=== PATIENT | female | born 1965 | race Caucasian/White ===

== ENCOUNTER → 2022-02-17 | Outpatient (CLI) | payer OTHER, SELFPAY ==
--- NOTE | 2022-02-17 06:46 | CT_ITS ---
STUDY: CT LEFT FOOT WITHOUT CONTRAST REASON FOR EXAM: Female, 56 years old. FX- attention foot and ankle RADIATION DOSAGE (If Supplied By Facility): CTDIvol = ( 15.35 ) mGy, DLP = ( 384.46 ) mGycm TECHNIQUE: Thin section transaxial imaging of the foot was obtained, with sagittal and coronal reconstructed images. Individualized dose optimization techniques were used for this CT. COMPARISON: None. FINDINGS: A small oblique acute fracture is present in the anterior process and dorsal aspect of the calcaneus without displacement. A small acute linear fracture is also present on the dorsal surface and anterior process of the talus with slight displacement of small bony fragment, see image #32/84 series 3. No additional acute fractures are seen in the remaining bony structures. Moderate subcutaneous edema is present around the lower ankle and entire foot. Small amounts of air and fluid are present on the lateral side of the foot in the subcutaneous fat. The foot muscles are normal. Normal talus, calcaneus, and tarsal bones. A tiny plantar calcaneal spur is present at the midline. The Achilles tendon is intact. Normal visualized tibiotalar, subtalar, talonavicular, calcaneocuboid, tarsal and tarsometatarsal articulations. Normal metatarsi. Normal metatarsophalangeal joint of the great toe. Normal tibial and fibular sesamoid bones. Normal interphalangeal joint of the great toe. Normal phalanges of the great toe. Normal second through fifth metatarsophalangeal joints. Normal interphalangeal joints and phalanges of the lesser toes. CT/Extremity Lower without Contra IMPRESSION: 1. A small oblique acute fracture is present in the anterior process and dorsal aspect of the calcaneus without displacement. 2. A small acute linear fracture is also present on the dorsal surface and anterior process of the talus with slight displacement of small bony fragment, see image #32/84 series 3. No additional acute fractures are seen in the remaining bony structures. 3. Moderate subcutaneous edema is present around the lower ankle and entire foot. Small amounts of air and fluid are present on the lateral side of the foot in the subcutaneous fat. Electronically Signed: Bakari Portillo MD at 15:26 EST ,
== END | disposition home or self-care (01) ==
PROVIDERS: Visit Provider Physician Assistant Surgical
DX: S92.122A Displaced fracture of body of left talus, initial encounter for closed fracture (principal); S92.022A Displaced fracture of anterior process of left calcaneus, initial encounter for closed fracture
CPT/HCPCS: 73700

== ENCOUNTER → 2024-12-29 | Outpatient (CLI) | payer OTHER, SELFPAY ==
--- OUTSIDE RECORDS SUMMARY | 2024-12-29 06:59 | XMS RPT_ITS | CCD ---
Author Organization [facility] Care Team Providers Care Toy Department Manager Name Role Phone JACINTO, ISAMAR Unavailable Unavailable JACINTO, ISAMAR Unavailable Unavailable JACINTO, ISAMAR Unavailable Unavailable JACINTO, ISAMAR Unavailable Unavailable JACINTO, ISAMAR Unavailable Unavailable JACINTO, ISAMAR Unavailable Unavailable JACINTO, ISAMAR Unavailable Unavailable JACINTO, ISAMAR Unavailable Unavailable JACINTO, ISAMAR Unavailable Unavailable JACINTO, ISAMAR Unavailable Unavailable JACINTO, ISAMAR Unavailable Unavailable JACINTO, ISAMAR Unavailable Unavailable JACINTO, ISAMAR Unavailable Unavailable JACINTO, ISAMAR Unavailable Unavailable Adrian Rodrigues Unavailable Unavailable PROVIDER, UNKNOWN Unavailable Unavailable UNKNOWN, PROVIDER Unavailable Unavailable BENTLEY MCBRIDE Unavailable Unavailable BENTLEY MCBRIDE Unavailable Unavailable YOLI ARAMBULA Attending Unavailab norman FRYE, PHYSICIAN Primary Care Unavailable Alex Coto Attending Unavailable Care Physician, No Primary Primary Care Unava ilable Kareem Ozuna MD Primary Care Provider Lita BORDEN MD, Frank A Primary Care Provider Agustina vailable Kareem Ozuna MD Primary Care Provider [phone] Lita BORDEN MD, Frank A Primary Care Provider Agustina vailable Arley RATTAN WORKER.SPARK PLUG ASSEMBLER, Vivi M Unavailable [phone] KAREEM OZUNA Primary Care Unavailable Allergies Allergy Classification Reported Allergen(s) Allergy Type Date of Onset Reaction(s) Facility (9 sources) gabapentin; Translations: [GABAPENTIN] Drug Allergy 6 Mental Status Change [facility] Other [employer] Repository Medications Current Medications Medication Drug Class(es) Dates Sig (Normalized) Sig (Original) hydrocortisone 10 mg/ml / neomycin 3.5 mg/ml / polymyxin b 52569 unt/ml otic suspension (2 sources) Aminoglycoside Antibacterial, Polymyxin-class Antibacterial, Corticosteroid Start: 11-26-2023 End: 12-01-2023 neomycin-polymyxin- hydrocortisone (CORTISPORIN) 3.5-10,000-1 mg/mL-unit/mL-% otic suspension Indications: Acute swimmer's ear of left side Use 4 Drops in the right ear three times a day for 5 days. 10 mL 11/26/2023 12/01/2023 Active Levonorgestrel (6 sources) Progestin, Progestin-containin g Intrauterine Device levonorgestrel (MIRENA INTRAUTERINE) by INTRAUTERINE route. Active levonorgestrel ( MIRENA INTRAUTERINE) by INTRAUTERINE route. 0 Active Comment on above: by INTRAUTERINE rout e. nitrofurantoin, macrocrystals 25 mg / nitrofurantoin, monohydrate 75 mg oral capsule (2 sources) Nitrofuran Antibacterial Start: 11-26-19 End: 12-01-19 take 1 capsule by mouth twice daily nitrofurantoin monohydrate and macrocrystal (MACROBID) 100 mg capsule Indications: Frequent urination Take 1 capsule by mouth two times a day for 5 days. 10 capsule 11/26/2023 12/01/2023 Active Problems Active Problems Problem Classification Problem Date Documented Da te Episodic/Chronic Diseases of white blood cells (7 sources) Band neutrophil count above reference range; Translations: [Bandemia] Onset: 10-01-2017 10-01-2017 Chronic Genitourinary symptoms and ill-defined conditions (1 source) Increased frequency of urination; Translations: [Frequency of micturition] 11-26-2023 Episodic Menstrual disorders (2 sources) Excessive and frequent menstruation with regular cycle; Translations: [Excessive and frequent menstruation with regular cycle] Onset: 05-10-2017 Chronic Other aftercare (4 sources) MCC (current) use of opiate analgesic; Translations: [MCC (current) use of non-steroidal anti-inflammatories (NSAID)] Onset: 10-18-2017 Episodic Other connective tissue disease (2 sources) Enthesopathy, unspecified; Translations: [Enthesopathy, unspecified] Onset: 10-18-2017 Episodic Other connective tissue disease (1 source) Trigger finger, right ring finger; Translations: [Trigger finger, right ring finger] Onset: 02-07-2018 Episodic Other ear and sense organ disorders (1 source) Acute otitis externa; Translations: [Swimmer's ear, left ear] 11-26-2023 Episodic Other nervous system disorders (2 sources) Other chronic pain; Translations: [Other chronic pain] Onset: 10-18-2017 Chronic Other non-traumatic joint disorders (2 sources) Pain in left wrist; Translations: [Pain in left wrist] Onset: 10-18-2017 Episodic Other nutritional; endocrine; and metabolic disorders (7 sources) Obese class II; Translations: [Obesity, unspecified] Onset: 12-09-2018 06-15-2021 Chronic Spondylosis; intervertebral disc disorders; other back problems (7 sources) Arthritis of facet joint of lumbar spine; Translations: [Spondylosis without myelopathy or radiculopathy, lumbar region] Onset: 10-28-2012 10-28-2012 Chronic Substance-related disorders (2 sources) Nicotine dependence, cigarettes, uncomplicated; Translations: [Nicotine dependence, cigarettes, uncomplicated] Onset: 10-18-2017 Chronic Unclassified (5 sources) Encounter for screening for malignant neoplasm of cervix; Translations: [Patient encounter status] Onset: 01-24-2017 Episodic Unclassified (2 sources) Acquired absence of other specified parts of digestive tract; Translations: [Acquired absence of other specified parts of digestive tract] Onset: 10-18-2017 Episodic Unclassified (2 sources) Other abnormal uterine and vaginal bleeding; Translations: [Other abnormal uterine and vaginal bleeding] Onset: 02-01-2017 Past or Other Problems Problem Classification Problem Date Documented Date Episodic/Chronic Allergic reactions (6 sources) Allergy status to narcotic agent status; Translations: [Contact dermatitis] Onset: 08-05-2008 Resolved: 04-15-2015 04-15-2015 Episodic Contraceptive and procreative management (7 sources) Intrauterine contraceptive device in situ; Translations: [Presence of (intrauterine) contraceptive device] Onset: 07-29-2012 07-29-2012 Episodic Fracture of lower limb (7 sources) Unspecified fracture of left talus, initial encounter for closed fracture; Translations: [Unspecified fracture of left calcaneus, initial encounter for closed fracture] Onset: 02-08-2022 Episodic Genitourinary symptoms and ill-defined conditions (4 sources) Female stress incontinence; Translations: [Stress incontinence (female) (male)] Onset: 04-15-2015 Resolved: 06-17-2021 06-17-2021 Chronic Other connective tissue disease (4 sources) Left rotator cuff syndrome; Translations: [Unspecified rotator cuff tear or rupture of left shoulder, not specified as traumatic] Onset: 03-21-2017 Resolved: 10-01-2017 10-01-2017 Episodic Other connective tissue disease (4 sources) Triggering of digit; Translations: [Trigger finger, right ring finger] Onset: 02-07-2018 Resolved: 04-30-2018 04-30-2018 Episodic Other inflammatory condition of skin (4 sources) Psoriasis; Translations: [Psoriasis, unspecified] Onset: 09-02-2010 Resolved: 06-17-2021 06-17-2021 Chronic Residual codes; unclassified (7 sources) Tobacco user; Translations: [Tobacco use] Onset: 01-01-2012 01-01-2012 Episodic Spondylosis; intervertebral disc disorders; other back problems (9 sources) Dorsalgia, unspecified; Translations: [Lumbar disc prolapse with radiculopathy] Onset: 01-01-2012 11-22-2017 Episodic Urinary tract infections (4 sources) Urinary tract infectious disease; Translations: [Urinary tract infection, site not specified] Onset: 10-29-2006 Resolved: 04-15-2015 04-15-2015 Episodic Results Test Name Value Interpretation Reference Range Facility [facility] -- SHAHEEN JOHNSTON ([id number]) 1965 F Date Time Provider Department 11/28/23 MANJINDER LAY [facility] During your visit today, we recorded the following information about you: Manjinder Lay APRN.CNP 11/28/2023 7:25 AM Signed Please inform patient that no bacterial infection was noted on urine culture. Continue antibiotics symptoms are improving. Follow-up with PCP for repeat urine dip. Manjinder Lay APRN.Stormy Huang LPN 11/28/2023 9:35 AM Signed Patient notified.Stormy Rainey LPN Allergies As of Date: 11/28/2023 Noted Allergy Reaction GABAPENTIN 06/01/2015 1 - Mental Status Change Date Reviewed: 11/26/2023 Reviewed by: Shira Goel APRN.SPARK PLUG ASSEMBLER - Fully Assessed Reason for Visit: Results [95] Prescriptions as of 11/28/2023 - nitrofurantoin monohydrate and macrocrystal (MACROBID) 100 mg capsule Take 1 capsule by mouth two times a day for 5 days. - pbpvnriq-lhucwluhe-qwinuba rtisone (CORTISPORIN) 3.5-10,000-1 mg/mL-unit/mL-% otic suspension Use 4 Drops in the right ear three times a day for 5 days. - levonorgestrel (MIRENA INTRAUTERINE) by INTRAUTERINE route. Problem List As Of Date 11/28/2023 Noted Resolved Urinary tract infection, site not specified [N3*10/29/2006 04/15/2015 Contact dermatitis and other eczema, due to uns*08/05/2008 04/15/2015 Psoriasis [L40.9] 09/02/2010 06/17/2021 Lumbar disc disease with radiculopathy [M51.16] 01/01/2012 Tobacco abuse [Z72.0] 01/01/2012 IUD (intrauterine device) in place [Z97.5] 07/29/2012 Facet arthritis of lumbar region [M47.816] 10/28/2012 LESLYE (stress urinary incontinence, female) [N39.*04/15/2015 06/17/2021 Rotator cuff syndrome of left shoulder [M75.102]03/21/2017 10/01/2017 Bandemia [D72.825] 10/01/2017 Trigger finger, right ring finger [M65.341] 02/07/2018 04/30/2018 Obesity, Class II, BMI 35-39.9 [E66.9] 12/09/2018 Encounter Status:Closed by STORMY RAINEY on 11/28/23 Normal [facility] Bacteria Ur Culton 4 Bacteria identified Cx Nom (U) ORGANISM ID: 1 10,000 -<50,000 CFU/ml Mixed microbiota No further workup Normal [facility] Comment on above: Performed By: #### 6 30-4 #### [facility] CLIA [id number] [address] [place] [address] [place] CNOVon 11-26-2023 CNOV Office Visit ([facility] ) -- SHAHEEN JOHNSTON ([id number]) 1965 F Date Time Provider Department 11/26/23 3:30 PM SHIRA GOEL [facility]STR During your visit today, we recorded the following information about you: Temperature Pulse Respiration Blood pressure 99.4 degrees 118/minute 16/minute 122/82 Weight 98.5 kg Shira Goel, RATTAN WORKER.SPARK PLUG ASSEMBLER 11/26/2023 4:04 PM Signed This note was created using [employer] Subjective Shaheen Johnston is a 58 year old female. HPI Pt complains of pain and swelling in her left ear after swimming last week. Symptoms seemed worse over the last several days. Last night pt noticed urinary frequency which has continued into today. Review of Systems Constitutional: Negative for fever. HENT: Negative for ear pain. Genitourinary: Positive for dysuria and frequency. Objective BP 122/82 Pulse 118 Temp 37.4 ?C (99.4 ?F) Resp 16 Wt 98.5 kg (217 lb 2.5 oz) LMP 07/11/2009 SpO2 98% BMI 35.32 kg/m? Physical Exam Vitals and nursing note reviewed. Constitutional: General: She is not in acute distress. Appearance: Normal appearance. She is not ill-appearing. HENT: Head: Normocephalic. Ears: Comments: Left external ear canal is swollen close Mouth/Throat: Mouth: Mucous membranes are moist. Eyes: Conjunctiva/sclera: Conjunctivae normal. Cardiovascular: Rate and Rhythm: Normal rate and regular rhythm. Pulmonary: Effort: Pulmonary effort is normal. Breath sounds: Normal breath sounds. Musculoskeletal: General: Normal range of motion. Cervical back: Normal range of motion. Skin: General: Skin is warm and dry. Neurological: General: No focal deficit present. Mental Status: She is alert. Psychiatric: Mood and Affect: Mood normal. Behavior: Behavior normal. Assessment and Plan ASSESSMENT/PLAN: 1. Frequent urination - ICD9: 788.41, ICD10: R35.0 (primary diagnosis) acute - UA positive for florence esterase - Send urine for culture - Begin treatment with Macrobid 100 mg BID for 5 days - Patient education for prevention given - UA DIP, URINE (POC) - URINE CULTURE - NITROFURANTOIN MONOHYDRATE AND MACROCRYSTAL 100 MG ORAL CAP 2. Acute swimmer's ear of left side - ICD9: 380.12, ICD10: H60.332 Ear wick inserted into left ear by myself. Several drops of normal saline were applied to anchor the ear wick. Patient given antibiotic drops as noted below. - PVESBOTQ-QVOJACGTD-FMWHNMF RT 3.5 MG-10,000 UNIT/ML-1 % EAR DROPS,SUSP Shira Goel APRN.SPARK PLUG ASSEMBLER Allergies As of Date: 11/26/2023 Noted Allergy Reaction GABAPENTIN 06/01/2015 1 - Mental Status Change Date Reviewed: 11/26/2023 Reviewed by: Shira Goel APRN.SPARK PLUG ASSEMBLER - Fully Assessed Reason for Visit: Facial Swelling [1292] Cmt: left side facial swelling, ear pain and pressure x 3 days, frequent urination x 1 day Primary Visit Diagnosis:Frequent urination [R35.0] Other Visit Diagnosis:Acute swimmer's ear of left side [H60.332] Order(s):UA DIP, URINE (POC) [9824339] Order #: [id number] URINE CULTURE [SQURCUL] Order #: [id number]. #:[id number] nitrofurantoin monohydrate and macrocrystal (MACROBID) 100 mg capsuleTake 1 capsule by mouth two times a day for 5 days.Disp: 10 capsuleRfl: 0 aakbdicq-flpjlmfey-etgguyg rtisone (CORTISPORIN) 3.5-10,000-1 mg/mL-unit/mL-% otic suspensionUse 4 Drops in the right ear three times a day for 5 days.Disp: 10 mLRfl: 0 Prescriptions as of 11/26/2023 - nitrofurantoin monohydrate and macrocrystal (MACROBID) 100 mg capsule Take 1 capsule by mouth two times a day for 5 days. - qggqxjiv-djczwmmju-fdeytdm rtisone (CORTISPORIN) 3.5-10,000-1 mg/mL-unit/mL-% otic suspension Use 4 Drops in the right ear three times a day for 5 days. - levonorgestrel (MIRENA INTRAUTERINE) by INTRAUTERINE route. Problem List As Of Date 11/26/2023 Noted Resolved Urinary tract infection, site not specified [N3*10/29/2006 04/15/2015 Contact dermatitis and other eczema, due to uns*08/05/2008 04/15/2015 Psoriasis [L40.9] 09/02/2010 06/17/2021 Lumbar disc disease with radiculopathy [M51.16] 01/01/2012 Tobacco abuse [Z72.0] 01/01/2012 IUD (intrauterine device) in place [Z97.5] 07/29/2012 Facet arthritis of lumbar region [M47.816] 10/28/2012 LESLYE (stress urinary incontinence, female) [N39.*04/15/2015 06/17/2021 Rotator cuff syndrome of left shoulder [M75.102]03/21/2017 10/01/2017 Bandemia [D72.825] 10/01/2017 Trigger finger, right ring finger [M65.341] 02/07/2018 04/30/2018 Obesity, Class II, BMI 35-39.9 [E66.9] 12/09/2018 Prescriptions ordered this encounter Disp Refills Start End NITROFURANTOIN MONOHYDRATE AND MACROCR* 10 c* 0 11/26/2023 12/01/2023 Route: ORAL Sig: Take 1 capsule by mouth two times a day for 5 days. IVWJXQNV-SEQULTPRF-UOBQMJF RT 3.5 MG-* 10 mL 0 11/26/2023 12/01/2023 Route: RIGHT EAR Sig: Use 4 Drops in the right ear three times a day for 5 days. Encounter Number: [id number] (more content not included)... Normal [facility] UA DIP, URINE (POC)on 2023 BILIRUBIN UA (POCT) Negative Negative [facility] CLARITY UA (POCT) Clear [facility] COLOR UA (POCT) Yellow [facility] GLUCOSE UA (POCT) Negative Negative mg/dL [facility] Hemoglobin Ql (U) Trace-intact Abnormal Negative [facility] Interpretation and review of laboratory results Abnormal [facility] KETONE UA (POCT) Negative Negative mg/dL [facility] LEUKOCYTES UA (POCT) Trace Abnormal Negative [facility] NITRITE UA (POCT) Negative Negative [facility] PH UA (POCT) 6.0 4.5 - 8.0 [facility] Protein Ql (U) Negative Negative mg/dL [facility] SPECIFIC GRAVITY UA (POCT) >=1.030 1.005 - 1.030 [facility] UROBILINOGEN UA (POCT) 1.0 Normal E.U./dL [facility] Location:[address], [id number] [place] [address] POINT OF CARE [facility] CNCOon 07-31-2023 CNCO Letter Text Normal [facility] Extremity Lower without Cont raon 02-17-2022 Extremity Lower without Contra [facility] Imaging Services [address] [place] [address] Extremity Lower without Contra MR#: [id number] Acct: [id number] Name: SHAHEEN JOHNSTON Rep #: [id number] : 1965 F 56 From: Bakari foster MD PCP: Care Physician,No Primary Status: REG CLI Study: Extremity Lower without Contra Date of Exam: 04/19/21 Exam# [id number] Ordering Dr: Alex Coto PA-C STUDY: CT LEFT FOOT WITHOUT CONTRAST REASON FOR EXAM: Female, 56 years old. FX- attention foot and ankle RADIATION DOSAGE (If Supplied By Facility): CTDIvol = ( 15.35 ) mGy, DLP = ( 384.46 ) mGycm TECHNIQUE: Thin section transaxial imaging of the foot was obtained, with sagittal and coronal reconstructed images. Individualized dose optimization techniques were used for this CT. COMPARISON: None. FINDINGS: A small oblique acute fracture is present in the anterior process and dorsal aspect of the calcaneus without displacement. A small acute linear fracture is also present on the dorsal surface and anterior process of the talus with slight displacement of small bony fragment, see image #32/84 series 3. No additional acute fractures are seen in the remaining bony structures. Moderate subcutaneous edema is present around the lower ankle and entire foot. Small amounts of air and fluid are present on the lateral side of the foot in the subcutaneous fat. The foot muscles are normal. Normal talus, calcaneus, and tarsal bones. A tiny plantar calcaneal spur is present at the midline. The Achilles tendon is intact. Normal visualized tibiotalar, subtalar, talonavicular, calcaneocuboid, tarsal and tarsometatarsal articulations. Normal metatarsi. Normal metatarsophalangeal joint of the great toe. Normal tibial and fibular sesamoid bones. Normal interphalangeal joint of the great toe. Normal phalanges of the great toe. Normal second through fifth metatarsophalangeal joints. Normal interphalangeal joints and phalanges of the lesser toes. CT/Extremity Lower without Contra IMPRESSION: 1. A small oblique acute fracture is present in the anterior process and dorsal aspect of the calcaneus without displacement. 2. A small acute linear fracture is also present on the dorsal surface and anterior process of the talus with slight displacement of small bony fragment, see image #32/84 series 3. No additional acute fractures are seen in the remaining bony structures. 3. Moderate subcutaneous edema is present around the lower ankle and entire foot. Small amounts of air and fluid are present on the lateral side of the foot in the subcutaneous fat. Electronically Signed: Bakari Portillo MD at 15:26 EST , CC: ULISES Coto; No Primary Care Physician Video Software Engineer: Signed Normal [facility] XR ANKLE LEFT 3+ VIEWS (COSME DARD)on 02-08-2022 XR ANKLE LEFT 3+ VIEWS (STANDARD) EXAMINATION: XR FOOT LEFT 3+ VIEWS (STANDARD); XR ANKLE LEFT 3+ VIEWS (STANDARD) 02/07/2022 10:54 pm HISTORY: ORDERING SYSTEM PROVIDED HISTORY: fall, TECHNOLOGIST PROVIDED HISTORY: Injury/Trauma Reason for exam: Pt states slipped and felt her ankle go underneath her. Noticeable swelling to the Left ankle. Cancer History: n Surgery, RadiationHistory: n Encounter Type: Initial Mechanism of injury: Pt states slipped and felt her ankle go underneath her. Noticeable swelling to the Left ankle. ORDERING SYSTEM PROVIDED DIAGNOSIS CODES: COMPARISON: None. IMPRESSION: FINDINGS/ Avulsion fracture involving the lateral aspect of the dorsal talar head. Minimally displaced fracture involving the anterior process of the calcaneus. Regional soft tissue swelling. No other fractures are evident. Achilles tendon insertional and plantar calcaneal enthesopathy. No radiopaque foreign bodies. Workstation ID: [id number] Dictated by: ALEC MCKEON on SunFeb 07, 2022 11:37:30 PM EDT Transcribed by: ALEC MCKEON on SunFeb 07, 2022 11:37:30 PM EDT Finalized by: ALEC MCKEON on SunFeb 07, 2022 11:37:[address] [facility] Comment on above: Order Comment: Injur y/Trauma or Illness?:Injury/Trauma How long have you had these symptoms (acute/chronic)?:Acute Reason for exam?:Pt states slipped and felt her ankle go underneath her. Noticeable swelling to the Left ankle. History of cancer?:n Surgeries, chemotherapy, or radiation?:n Type of Exam?:Initial Mechanism of injury?:Pt states slipped and felt her ankle go underneath her. Noticeable swelling to the Left ankle. XR FOOT LEFT 3+ VIEWS (STAND MICHELL)on 02-08-2022 XR FOOT LEFT 3+ VIEWS (STANDARD) EXAMINATION: XR FOOT LEFT 3+ VIEWS (STANDARD); XR ANKLE LEFT 3+ VIEWS (STANDARD) 02/07/2022 10:54 pm HISTORY: ORDERING SYSTEM PROVIDED HISTORY: fall, TECHNOLOGIST PROVIDED HISTORY: Injury/Trauma Reason for exam: Pt states slipped and felt her ankle go underneath her. Noticeable swelling to the Left ankle. Cancer History: n Surgery, RadiationHistory: n Encounter Type: Initial Mechanism of injury: Pt states slipped and felt her ankle go underneath her. Noticeable swelling to the Left ankle. ORDERING SYSTEM PROVIDED DIAGNOSIS CODES: COMPARISON: None. IMPRESSION: FINDINGS/ Avulsion fracture involving the lateral aspect of the dorsal talar head. Minimally displaced fracture involving the anterior process of the calcaneus. Regional soft tissue swelling. No other fractures are evident. Achilles tendon insertional and plantar calcaneal enthesopathy. No radiopaque foreign bodies. Workstation ID: [id number] Dictated by: ALEC MCKEON on SunFeb 07, 2022 11:37:30 PM EDT Transcribed by: ALEC MCKEON on SunFeb 07, 2022 11:37:30 PM EDT Finalized by: ALEC MCKEON on SunFeb 07, 2022 11:37:[address] [facility] Comment on above: Order Comment: Injur y/Trauma or Illness?:Injury/Trauma How long have you had these symptoms (acute/chronic)?:Acute Reason for exam?:Pt states slipped and felt her ankle go underneath her. Noticeable swelling to the Left ankle. History of cancer?:n Surgeries, chemotherapy, or radiation?:n Type of Exam?:Initial Mechanism of injury?:Pt states slipped and felt her ankle go underneath her. Noticeable swelling to the Left ankle. HISTORY PHYSICALon HISTORY PHYSICAL HNO ID: [id number] thor: Bentley Barrerae: Orthopaedic SurgeryAuthor Type: PhysicianType: HANDPFiled: 02/22/2018 1:03 PMNote Text:Bentley Mcbride [facility]epartment of [id number] [address] [place] [place] [address]Bkrf: [phone] Ighuhro [id number] COMPLAINT: New Patient (Trigger Finger, R)HPI: Ms. Shaheen Johnston is a 52 year old female presents with locking,clicking, pain in the right ring finger. Works as a nurse. D.ASSESSMENT:M65.341 Trigger ring finger of right hand (primary encounter diagnosis)PLAN:Flexor tenosynovitis. She would like to pursue surgery. We reviewed therisks, benefits, alternatives and potential complications of a triggerrelease.FOLLOW UP INSTRUCTIONS:Schedule at her convenienceOBJECTIVE:Ms. Shaheen Johnston is a pleasant 52 year old in no apparent distress.Gen:BP 146/98 Pulse 102 Ht 5' 8 (1.73m) Wt 188 lb (85.3kg) BMI28.59 kg/(m2). nl development, non obese, no deformitiesENT: Normocephalic, normal hearing, moist mucosaCV: Pulses:Radial= 2+ and symmetric, capillary refill < 2 secs, noperipheral edema/varicositiesHeart: RRR, Nml S1, P8Kuyks: CTA B/LSkin: no rash, bruising or lesions. Good turgor.Psych: cooperative and appropriate, alert and oriented x 3, good mood andaffect.Musculoskeletal: Tender to palpation over the A1 fabio of the right ring finger. Activelocking and catching.IMAGING:Deferred today.Supporting Subjective Information Below:Past Medical History:PAST MEDICAL HISTORYDiagnosis Date- Acute appendicitis without mention of peritonitis 06/20/07- Bandemia 10/01/2017 05/10/17: WBC 12.9 abs neutrophils 11.8 (2.85-6.16) abs lymphocytes2.3 (0.77-3.85)- De Quervain's tenosynovitis, left- Facet arthritis of lumbar region (HCC) 10/28/2012- Lumbar disc disease with radiculopathy 01/01/2012- Lumbar disc disease with radiculopathy 01/01/2012 MRI [place] spine 2013: mod-severe left foraminal stenosis, L4-5- Psoriasis 09/02/2010- Rotator cuff syndrome of left shoulder 03/21/2017 03/21/17: Tendinitis of the supraspinatus, subscapularis, andinfraspinatus tendons, left shoulder- Tobacco abuse 01/01/2012- Tobacco abusePast Surgical History:PAST SURGICAL HISTORYProcedure Laterality Date- LAPAROSCOPY, SURGICAL, APPENDECTOMY 06/[birth year]07Family History:FAMILY HISTORYProblem Relation Age of Onset- None UnknownSocial History:Social History Marital status: Legally Spouse name: Years of education: Number of children:Social History Main Topics Smoking status: Current Every Day Smoker Packs/day: 0.50 Years: 20.00 Types: Cigarettes Smokeless tobacco: Never Used Alcohol use: Yes Comment: socially Drug use: NoMedications:Current Outpatient Prescriptions:[START ON 02/08/2018] HYDROcodone-acetaminophen (NORCO) 5-325 mg per tabletTake 1-2 tablets by mouth every 6 hours as needed for Pain (max 8/day) forup to 30 days.Earliest Fill Date: 02/08/18[START ON 03/10/2018] HYDROcodone-acetaminophen (NORCO) 5-325 mg per tabletTake 1-2 tablets by mouth every 6 hours as needed for Pain (max 8/day) forup to 30 days.Earliest Fill Date: 03/10/18[START ON 04/10/2018] HYDROcodone-acetaminophen (NORCO) 5-325 mg per tabletTake 1-2 tablets by mouth every 6 hours as needed for Pain (max 8/day) forup to 30 days.Earliest Fill Date: 04/10/18gabapentin (NEURONTIN) 100 mg capsule Take 2 capsules by mouth daily atbedtime for 30 days.levonorgestrel (MIRENA INTRAUTERINE) by INTRAUTERINE route.HYDROcodone-acetamin ophen (NORCO) 5-325 mg per tablet Take 1-2 tablets bymouth every 6 hours as needed for Pain (max 8/day) for up to 30days.Earliest Fill Date: 11/04/17HYDROcodone-acetami nophen (NORCO) 5-325 mg per tablet Take 1-2 tablets bymouth every 6 hours as needed for Pain (max 8/day) for up to 30days.Earliest Fill Date: 12/04/17HYDROcodone-acetami nophen (NORCO) 5-325 mg per tablet Take 1-2 tablets bymouth every 6 hours as needed for Pain (max 8/day) for up to 30days.Earliest Fill Date: 07/06/17HYDROcodone-acetami nophen (NORCO) 5-325 mg per tablet Take 1-2 tablets bymouth every 6 hours as needed for Pain (max 8/day) for up to 30days.Earliest Fill Date: 08/06/17No current facility-administered medications for this visit.Allergies: GabapentinROS:General (negative for fatigue, malaise, weight loss/gain)HEENT (negative for headache, earache, recent vision changes, sinus pain,sore throat) Respiratory (no recent shortness of breath, hemoptysis)CV (negative for chest tightness, palpitations)Musculoskelet al (see HPI)Psych (no depression, anxiety)REFERRING PHYSICIAN: Ms. Shaheen Johnston was referred to me forconsultation by the following physician. This consultation note will besent to the following physician by either mail or electronic medicalrecord.Bj London III MD17[address] [facility] [id number] note was partially generated using Snappli voice recognition system,and there may be some incorrect words, spellings, and punctuation thatwere not noted in checking the note before saving.Bentley Mcbride MD [facility] NURSING PROGon 02-22-2018 Protein mass conc HNO ID: [id number] Author: Obed (Rn) REMY Coreas Service: Nursing Author Type: Registered Nurse Type: Nursing Progress Note Filed: 02/22/2018 1:14 PM Note Text: Local injection r ring finger per DR Mcbride [facility] OPERATIVE NOon 02-22-2018 OPERATIVE NO HNO ID: [id number] thor: Bentley McbrideService: Orthopaedic SurgeryAuthor Type: PhysicianType: Operative ReportFiled: 02/22/2018 1:58 PMNote Text:OPERATIVE/PROCEDURE REPORTLOG ID: [id number]/Procedure Date: 02/22/2018Incision/Procedu re Start Time: 1:33 PMIncision Close/Procedure End Time: 1:45 PMSurgeon(s)/Proceduralist (s) and Purchasing Assistant(s):Surgeon(s) and Role: * Bentlye Mcbride - PrimaryPhysician Purchasing Assistant: Jackson (Pa) VetovitzProcedure(s): right ring trigger release.Anesthesia: Local.Procedure Details: On 02/22/2018, the patient was clearly identified inthe preoperative area and marked accordingly on the right ring by myself.After a chloroprep swab, Local anesthetic was provided at the base of thering near the A1 fabio site for a total of 2 mL of 1% lidocaine withEpinephrine. Patient was taken to the operative suite and placed in thesupine position with an arm board on the right. All other bony landmarkswere appropriately padded in standard fashion. The right upper extremitywas sterilely prepped and draped in standard fashion. An appropriatetime-out was conducted and all in the room were in agreement, signedconsent form was on the chart. An incision was made over the A1 fabio ofthe ring. This was done superficially with a 15 blade and blunt dissectionwas taken down longitudinally to the flexor apparatus. The digital nerveswere clearly identified and protected throughout the case with Crileretractors. Under direct visualization, I divided the A1 fabio site ofthe ring with a 15 blade. There was obvious tenosynovitis and a slightsynovectomy was made with Littler scissors. I used a Ragnell retractor topull the tendon up through the wound confirming its complete release. Thewound was copiously irrigated and the tourniquet was taken down.Hemostasis was observed with bipolar electrocautery.Closure was done with 4-0 Monosof sutures in horizontal mattress fashionfor a total of 2. Xeroform gauze, an eye patch, light Khadar wrap and Cobanwas used for final bandage. There were no complications during theprocedure. Patient was safely awoken and transferred to the PostanestheticCare Unit in stable condition.Pre-Op/Pre-Proce dure Diagnosis: right ring trigger fingerPost-Op/Post-Procedu re Diagnosis: right ring trigger finger.Estimated Blood Loss: NoneSpecimens: NoneImplantable Devices: NoneDrains: NoneComplications: NoneThe primary surgeon/proceduralist performed the entire procedure.SIGNATURE: Bentley Mcbride MD PATIENT NAME: Shaheen JohnstonDATE: February 22, 2018 : 1:57 PM PAGER/CONTACT #: [facility] PT EDon 02-22-2018 PT ED HNO ID: [id number] thor: Roseanne (Rn) JACKSON Edwardservice: (none)Author Type: Registered NurseType: Patient EducationFiled: 02/22/2018 1:54 PMNote Text:POST OP LEARNING RESPONSEINSTRUCTION PROVIDED TO: Patient and family memberMETHOD OF INSTRUCTION: Written instruction - handoutsVerbal instructionPATIENT / FAMILY RESPONSE: Verbalizes understanding of: POST-OPERATIVEINSTRUCTIONS -Correct actions to take to reduce postoperative complicationsFOLLOW-UP PLAN: Complete - No need for follow-upPatient instructed to call with any further issuesSUPPLEMENTAL MATERIAL: NoneREFERRAL (RECOMMENDATION): NoneElectronically Signed By: Roseanne Edwards RN In Department[facility] PT ED HNO ID: [id number] thor: Obed (Rn) Lyudmila RNService: NursingAuthor Type: Registered NurseType: Patient EducationFiled: 02/22/2018 12:05 PMNote Text:PRE OP LEARNING ASSESSMENTPROCEDURE/SURGER Y: SURGERY:READINESS TO LEARNCOGNITIVE ABILITY: Alert and orientedMOTIVATION TO LEARN: InterestedFAMILY SUPPORT: High - Very involved in pt carePATIENT LEARNS BEST BY: Verbal InstructionFACTORS AFFECTING LEARNING: NonePHYSICAL LIMITATIONS AFFECTING LEARNING: NoneElectronically Signed By: Obed Coreas RN In Department: [facility] HOSPon 02-07-2018 HOSP Patient:Case Johnston ea KMRN: Height:5' 8(1.727 m)Weight:188 lb (85.276 kg)Outpatient Medications as of 02/22/18:HYDROcodone-aceta minophen (NORCO) 5-325 mg per tabletgabapentin (NEURONTIN) 100 mg capsuleHYDROcodone-acetami nophen (NORCO) 5-325 mg per tabletHYDROcodone-acetamin ophen (NORCO) 5-325 mg per tabletlevonorgestrel (MIRENA INTRAUTERINE)HYDROcodone-a cetaminophen (NORCO) 5-325 mg per tabletHYDROcodone-acetamin ophen (NORCO) 5-325 mg per tabletAdmission/Clinic Administered Medications as of 02/22/18:lidocaine-EPINEPH rine 2 %-1:100,000 10 mL injectionProblem List:Arthralgia [M25.50]Psoriasis [L40.9]Venous insufficiency of leg [I87.2]Lumbar disc disease with radiculopathy [M51.16]Tobacco abuse [Z72.0]IUD (intrauterine device) in place [Z97.5]Facet arthritis of lumbar region (HCC) [M46.96]Chronic pain syndrome [G89.4]LESLYE (stress urinary incontinence, female) [N39.3]Chronic use of opiate for therapeutic purpose [Z79.891]Bandemia [D72.825]Trigger finger, right ring finger [M65.341]Allergies:Gabapen tinDate Verified: 02/22/18Lab ValuesNo results within the last 30 days for the following basenames: K,HCTProgress Notes ([facility]):Heena Cristobal Chelle Yip 02/07/2018 10:51 AM SignedSurgical request completed for right ring trigger finger release [facility] on 02/22/2018 under local anesthesia. Post op appointments have beenscheduled and mailed to patient.Brandy Mariscals [facility] 02/07/2018 3:34 PM SignedNoted [facility].Heena Cristobal Chelle Yip 02/07/2018 4:27 PM SignedSurgery has been scheduled as requested.Progress Notes ([facility]):Shea Garcia Ma 02/22/2018 1:01 PM SignedAMB ROOMING INTAKE FLOWSHEET DATARisk ScreeningDo you have concerns about personal safety or safety in the home?: NoPatient reports R ring finger clicking, locking, swelling that started about 3weeks ago. Feels like its stoved at times and every once in a while painradiates into R wrist. She has tried ibuprofen and ice with minimal relief.States that symptoms have gotten worse after removing her ring from finger. 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 Shaheen Johnston is a 52 year old female presents with locking,clicking, pain in the right ring finger. Works as a nurse. RHD.ASSESSMENT:M65.341 Trigger ring finger of right hand (primary encounter diagnosis)PLAN:Flexor tenosynovitis. She would like to pursue surgery. We reviewed the risks,benefits, alternatives and potential complications of a trigger release.FOLLOW UP INSTRUCTIONS:Schedule at her convenienceOBJECTIVE:Ms. Shaheen Johnston is a pleasant 52 year old in no apparent distress.Gen:BP 146/98 Pulse 102 Ht 5' 8 (1.73m) Wt 188 lb (85.3kg) BMI 28.59kg/(m2). nl development, non obese, no deformitiesENT: Normocephalic, normal hearing, moist mucosaCV: Pulses:Radial= 2+ and symmetric, capillary refill < 2 secs, no peripheraledema/varicositi esSkin: no rash, bruising or lesions. Good turgor.Psych: cooperative and appropriate, alert and oriented x 3, good mood andaffect.Musculoskeletal: Tender to palpation over the A1 fabio of the right ring finger. Active lockingand catching.IMAGING:Deferred today.Supporting Subjective Information Below:Past Medical History:PAST MEDICAL HISTORYDiagnosis Date- Acute appendicitis without mention of peritonitis 06/20/07- Bandemia 10/01/2017 05/10/17: WBC 12.9 abs neutrophils 11.8 (2.85-6.16) abs lymphocytes 2.3(0.77-3.85)- De Quervain's tenosynovitis, left- Facet arthritis of lumbar region (HCC) 10/28/2012- Lumbar disc disease with radiculopathy 01/01/2012- Lumbar disc disease with radiculopathy 01/01/2012 MRI LS spine 2012: mod-severe left foraminal stenosis, L4-5- Psoriasis 09/02/2010- Rotator cuff syndrome of left shoulder 03/21/2017 03/21/17: Tendinitis of the supraspinatus, subscapularis, and infraspinatustendons, left shoulder- Tobacco abuse 01/01/2012- Tobacco abusePast Surgical History:PAST SURGICAL HISTORYProcedure Laterality Date- LAPAROSCOPY, SURGICAL, APPENDECTOMY 06/21/07Family History:FAMILY HISTORYProblem Relation Age of Onset- None UnknownSocial History:Social History Marital status: Legally Spouse name: Years of education: Number of children:Social History Main Topics Smoking status: Current Every Day Smoker Packs/day: 0.50 Years: 20.00 Types: Cigarettes Smokeless tobacco: Never Used Alcohol use: Yes Comment: socially Drug use: NoMedications:Current Outpatient Prescriptions:[START ON 02/08/2018] HYDROcodone-acetaminophen (NORCO) 5-325 mg per tablet Take1-2 tablets by mouth every 6 hours as needed for Pain (max 8/day) for up to 30days.Earliest Fill Date: 02/08/18[START ON 03/10/2018] HYDROcodone-acetaminophen (NORCO) 5-325 mg per tablet Take1-2 tablets by mouth every 6 hours as needed for Pain (max 8/day) for up to 30days.Earliest Fill Date: 03/10/18[START ON 04/10/2018] HYDROcodone-acetaminophen (NORCO) 5-325 mg per tablet Take1-2 tablets by mouth every 6 hours as needed for Pain (max 8/day) for up to 30days.Earliest Fill Date: 04/10/18gabapentin (NEURONTIN) 100 mg capsule Take 2 capsules by mouth daily at bedtimefor 30 days.levonorgestrel (MIRENA INTRAUTERINE) by INTRAUTERINE route.HYDROcodone-acetamin ophen (NORCO) 5-325 mg per tablet Take 1-2 tablets by mouthevery 6 hours as needed for Pain (max 8/day) for up to 30 days.Earliest FillDate: 11/04/17HYDROcodone-acetami nophen (NORCO) 5-325 mg per tablet Take 1-2 tablets by mouthevery 6 hours as needed for Pain (max 8/day) for up to 30 days.Earliest FillDate: 12/04/17HYDROcodone-acetami nophen (NORCO) 5-325 mg per tablet Take 1-2 tablets by mouthevery 6 hours as needed for Pain (max 8/day) for up to 30 days.Earliest FillDate: 07/06/17HYDROcodone-acetami nophen (NORCO) 5-325 mg per tablet Take 1-2 tablets by mouthevery 6 hours as needed for Pain (max 8/day) for up to 30 days.Earliest FillDate: 08/06/17No current facility-administered medications for this visit.Allergies: GabapentinROS:General (negative for fatigue, malaise, weight loss/gain)HEENT (negative for headache, earache, recent vision changes, sinus pain, sorethroat) Respiratory (no recent shortness of breath, hemoptysis)CV (negative for chest tightness, palpitations)Musculoskelet al (see HPI)Psych (no depression, anxiety)REFERRING PHYSICIAN: Ms. Shaheen Johnston was referred to me for consultation bythe following physician. This consultation note will be sent to the followingphysician by either mail or electronic medical record.Bj London III MD17[address] [facility] [id number] London III MD1740 [facility] [id number] note was partially generated using Snappli voice recognition system, andthere may be some incorrect words, spellings, and punctuation that were notnoted in checking the note before saving.Bentley Mcbride MD [facility] CR Wrist Complete 3 Views Le fton 10-19-2017 CR Wrist Complete 3 Views Left Patient Name: SHAHEEN JOHNSTON Diagnostic Radiology Exam Date/Time 10/18/2017 21:54:00 EDT Exam CR Wrist Complete 3 Views Left Ordering Physician MD RODRIGUES GERALD Accession Number [id number] CPT4 Codes 86287 () Reason For Exam pain Report Indication: Pain. Three views of the left wrist show no evidence of an acute fracture or dislocation. There is no evidence of bone destruction, erosion or periosteal reaction. No significant osteoarthritic degenerative changes are visualized. There are no radiopaque foreign bodies. IMPRESSION: 1. No evidence of an acute bone process. If the patient's symptomatology persists, short-term follow-up radiographs are recommended. Report Dictated on Final Dictating Physician: DO HAYWOOD ANTHONY Signed Date and Time: 10/18/2017 10:02 pm Signed by: DO HAYWOOD ANTHONY Transcribed Date and Time: 10/18/2017 10:03 [facility] Final Surgical Pathology Rep [facility] 05-14-2017 Final Surgical Pathology Report . Pathology ReportsAccession: Collected Date/Time: Received Date/Time: Pathologist:[id number] 05/10/2017 13:49 EST 05/11/2017 13:49 EST DO SUDHA SAGE Final Surgical Pathology ReportDIAGNOSIS:ENDOMETRIU M -- FRAGMENTS OF INACTIVE ENDOMETRIUM AND FRAGMENTS CONSISTENT WITH POLYP. NEGATIVE FOR HYPERPLASIA OR MALIGNANCY.COMMENT:[facility]# [id number] INFORMATION:MENORRHAGIASPE CIMEN:A ECC -CERVICAL CURETTAGE_GROSS DESCRIPTION:_Received in formalin labeled cervix curettage is a 1.3 x 1.2 x 0.4 cm portion of red-teixeira tissue and blood-tinged mucus. A S -1Dictated by ODILIA HANSON ([facility])MICROSCOPIC DESCRIPTION:Slides reviewed.Electronically Signed byPathology Report verified by [facility] HospitalElectronically signed by SUDHA Cavazos out Date: 05/14/2017 12:20Performing Lab: [facility], [address] [place] [id number] [place] [address] [facility] [place] Comment on above: Performed By: #### H PV ####[place] [address] .Auto Diffon 05-10-2017 Basophils Auto #/vol (Bld) 0.10 10 3/mcL Normal 0.00-0.19 [facility] Comment on above: Performed By: #### H PV ####[address] [address] Basophils/100 WBC Auto (Bld) 0.7 % Normal 0.0-2.5 [facility] Comment on above: Performed By: #### H PV ####[place] [address] Eosinophils 0.30 10 3/mcL Normal 0.00-0.40 [facility] Comment on above: Performed By: #### H PV ####[place] [id number] Eosinophils/100 leukocytes 2.0 % Normal 0.0-7.0 [facility] Comment on above: Performed By: #### H PV ####[address] [address] Lymphocytes 2.00 10 3/mcL Normal 0.77-3.85 [facility] Comment on above: Performed By: #### H PV ####[address] [address] Lymphocytes/100 leukocytes 15.2 % Normal 10.0-50.0 [facility] [place] Comment on above: Performed By: #### H PV ####[address] [address] Monocytes 0.60 10 3/mcL Normal 0.15-1.00 [facility] [place] Comment on above: Performed By: #### H PV ####[address] [address] Monocytes/100 leukocytes 4.9 % Normal 1.7-13.0 [facility] [place] Comment on above: Performed By: #### H PV ####[address] [address] Neutrophils/100 WBC Auto (Bld) 77.2 % Normal 37.0-80.0 [facility] [place] Comment on above: Performed By: #### H PV ####[address] [address] .NEUABSon 05-10-2017 Neutrophils 10.00 10 3/mcL High 2.85-6.16 [facility] Comment on above: Performed By: #### H PV ####[address] [address] CBCon 05-10-2017 Erythrocyte distribution width Auto Ratio (RBC) 13.1 % Normal 11.5-14.5 [facility] [place] Comment on above: Performed By: #### BRIDGETTE YAO ANEU ####[address] [place], [place] [address] Erythrocytes (RBC) 5.10 10 6/mcL Normal 4.20-5.40 [facility] ([place]) Comment on above: Performed By: #### BRIDGETTE YAO ANEU ####[address] [place], [place] [address] Hematocrit (HCT) 47.2 % High 37.0-47.0 [facility] [place] Comment on above: Performed By: #### BRIDGETTE YAO, ANEU ####[address] [place], [place] [address] Hemoglobin mass conc (Bld) 15.8 G/dL Normal 12.0-16.0 [facility] [place] Comment on above: Performed By: #### Yumiko APONTE ADIFF, ANEU ####[address] [place], [place] [address] MCH 31.0 pg Normal 27.0-31.2 [facility] [place] Comment on above: Performed By: #### C BC, ADIFF, ANEU ####[address] [place], [place] [address] MCHC mass conc (RBC) 33.5 G/dL Normal 33.0-37.0 [facility] [place] Comment on above: Performed By: #### C FADI, BRIDGETTE, ANEU ####[address] [place], [place] [address] MCV 92.6 fL Normal 80.0-94.0 [facility] [place] Comment on above: Performed By: #### CONCEPCION YAOIFF, ANEU ####[address] [place], [place] [address] Platelet mean volume (PMV) 7.7 fL Normal 7.4-10.4 [facility] ([place] Comment on above: Performed By: #### BRIDGETTE YAO, ANEU ####[address] [place], [place] [address] Platelets 391 10 3/mcL Normal 130-400 [facility] ([place] Comment on above: Performed By: #### CONCEPCION YAOIFF, ANEU ####[address] [place], [place] [address] WBC (Leukocytes) 12.90 10 3/mcL High 4.60-10.80 [facility] ([place]) Comment on above: Performed By: #### C FADI, CONCEPCIONIFF, ANEU ####[address] [place], [place] [address] .Auto Diffon 02-07-2017 Basophils Auto #/vol (Bld) 0.10 10 3/mcL Normal 0.00-0.19 [facility] ([place] Comment on above: Performed By: #### C FADI, ADIFF, ANEU, TSH, HCGQ ####[address] [place], [place] [address] Basophils/100 WBC Auto (Bld) 0.5 % Normal 0.0-2.5 [facility] ([place]) Comment on above: Performed By: #### C BC, ADIFF, ANEU, TSH, HCGQ ####[address] [place], [place] [address] Eosinophils 0.20 10 3/mcL Normal 0.00-0.40 [facility] ([place]) Comment on above: Performed By: #### C BC, ADIFF, ANEU, TSH, HCGQ ####[address] [place], [place] [address] Eosinophils/100 leukocytes 1.1 % Normal 0.0-7.0 [facility] ([place]) Comment on above: Performed By: #### C BC, ADIFF, ANEU, TSH, HCGQ ####[address] [place], [place] [address] Lymphocytes 2.30 10 3/mcL Normal 0.77-3.85 [facility] ([place]) Comment on above: Performed By: #### C BC, ADIFF, ANEU, TSH, HCGQ ####[address] [place], [place] [address] Lymphocytes/100 leukocytes 15.7 % Normal 10.0-50.0 [facility] ([place]) Comment on above: Performed By: #### C BC, ADIFF, ANEU, TSH, HCGQ ####[address] [place], [place] [address] Monocytes 0.50 10 3/mcL Normal 0.15-1.00 [facility] ([place]) Comment on above: Performed By: #### C BC, ADIFF, ANEU, TSH, HCGQ ####[address] [place], [place] [address] Monocytes/100 leukocytes 3.5 % Normal 1.7-13.0 [facility] ([place]) Comment on above: Performed By: #### C BC, ADIFF, ANEU, TSH, HCGQ ####[address] [place], [place] [address] Neutrophils/100 WBC Auto (Bld) 79.2 % Normal 37.0-80.0 [facility] ([place] Comment on above: Performed By: #### C BC, ADIFF, ANEU, TSH, HCGQ ####[address] [place], [place] [address] .NEUABSon 02-07-2017 Neutrophils 11.80 10 3/mcL High 2.85-6.16 [facility] ([place]) Comment on above: Performed By: #### C BC, ADIFF, ANEU, TSH, HCGQ ####[address] [place], [place] [address] CBCon 02-07-2017 Erythrocyte distribution width Auto Ratio (RBC) 13.1 % Normal 11.5-14.5 [facility] [place] Comment on above: Performed By: #### C BC, ADIFF, ANEU, TSH, HCGQ ####[address] [place], [place] [address] Erythrocytes (RBC) 5.49 10 6/mcL High 4.20-5.40 [facility] ([place]) Comment on above: Performed By: #### C BC, ADIFF, ANEU, TSH, HCGQ ####[address] [place], [place] [address] Hematocrit (HCT) 52.0 % High 37.0-47.0 [facility] ([place] Comment on above: Performed By: #### C BC, ADIFF, ANEU, TSH, HCGQ ####[address] [place], [place] [address] Hemoglobin mass conc (Bld) 17.1 G/dL High 12.0-16.0 [facility] [place] Comment on above: Performed By: #### C BC, ADIFF, ANEU, TSH, HCGQ ####[address] [place], [place] [address] MCH 31.1 pg Normal 27.0-31.2 [facility] ([place] Comment on above: Performed By: #### C BC, ADIFF, ANEU, TSH, HCGQ ####[address] [place], [place] [address] MCHC mass conc (RBC) 32.8 G/dL Low 33.0-37.0 [facility] ([place] Comment on above: Performed By: #### C BC, ADIFF, ANEU, TSH, HCGQ ####[address] [place], [place] [address] MCV 94.8 fL High 80.0-94.0 [facility] ([place] Comment on above: Performed By: #### C BC, ADIFF, ANEU, TSH, HCGQ ####[address] [place], [place] [address] Platelet mean volume (PMV) 7.9 fL Normal 7.4-10.4 [facility] [place] Comment on above: Performed By: #### C BC, ADIFF, ANEU, TSH, HCGQ ####[address] [place], [place] [address] Platelets 344 10 3/mcL Normal 130-400 [facility] ([place] Comment on above: Performed By: #### C BC, ADIFF, ANEU, TSH, HCGQ ####[address] [place], [place] [address] WBC (Leukocytes) 14.90 10 3/mcL High 4.60-10.80 [facility] ([place]) Comment on above: Performed By: #### Yumiko BC, ADIFF, ANEU, TSH, HCGQ ####[address] [place], [place] [address] HCGQon 02-07-2017 hCG, quantitative <0.5 Normal [facility] ([place]) Comment on above: Result Comment: Ronnie guajardo measuring rangeQuantitative hCG reference ranges:3 Weeks 5-12 mIU/mL4 Weeks 10-708 mIU/mL5 Weeks 217-8,245 mIU/mL6 Weeks 152-32,177 mIU/mL7 Weeks 4,059-153,767 mIU/mL8 Weeks 31,366-149,094 mIU/mL9 Weeks 59,109-135,901 mIU/mL10 Weeks 44,186-170,409 mIU/mL12 Weeks 27,107-201,615 mIU/mL14 Weeks 24,302-93,646 mIU/mL16 Weeks 8,905-55,332 mIU/mL Performed By: #### C BC, ADIFF, ANEU, TSH, HCGQ ####[address] [place], [place] [address] TSHon 02-07-2017 Thyroid stimulating hormone (TSH) 0.90 mcIU/mL Normal [facility] ([place] Comment on above: Performed By: #### C BC, ADIFF, ANEU, TSH, HCGQ ####[address] [place], [place] [address] Final Surgical Pathology Rep [facility] 02-05-2017 Final Surgical Pathology Report . Pathology ReportsAccession: Collected Date/Time: Received Date/Time: Pathologist:[id number] 02/01/2017 07:47 EDT 02/02/2017 07:48 EDT MD SERG ORTA Final Surgical Pathology ReportDIAGNOSIS:ENDOMETRIU M, BIOPSY: - FRAGMENTS OF ENDOMETRIAL TISSUE, DECIDUALIZED TISSUE AND RARE CHORIONIC VILLI (PRODUCTS OF CONCEPTION) IDENTIFIED.COMMENT:[facility]# [id number] INFORMATION:ABNORMAL BLEEDINGSPECIMEN:A EMBX - ENDOMETRIAL BIOPSY_GROSS DESCRIPTION:_Received in formalin labeled endometrial biopsy is about 0.5 cc of red blood clot teixeira-red tissue and blood tinged mucus. A S -1Dictated by ODILIA HANSON ([facility])MICROSCOPIC DESCRIPTION:Slides reviewed.Electronically Signed byPathology Report verified by [facility] HospitalElectronically signed by SERG ORTA MDSign out Date: 02/05/2017 14:08Performing Lab: [facility], [address] [place] [address] ([place]) Comment on above: Performed By: #### S PFR ####[place] [address] US TRANSVAGINAL NON OBon US TRANSVAGINAL NON OB ORIGINALUS PELVIS NON-OB TRANSABDOMINAL AND TRANSVAGINAL CLINICAL STATEMENT: Other specified abnormal uterine and vaginal bleeding COMPARISON: None FINDINGS: Transabdominal ultrasound was initially performed with an incompletely distended bladder. Transvaginal ultrasound demonstrates the retroverted uterus to measure 7.3 x 5.2 x 5.5 cm with normal echotexture. No myometrial mass is seen. The endometrial double wall thickness is 8-9 mm. An echogenic shadowing intrauterine device is identified extending into the fundal portion of the endometrial canal with a small amount of mostly hypoechoic fluid in the endometrial canal. The RIGHT and LEFT ovaries measure 2.6 x 2.1 x 2.4 cm and 7.2 x 4.5 x 5.1 cm respectively. There is positive doppler flow to both ovaries. A right ovarian anechoic simple appearing follicle measures 1.5 x 1.2 x 1.3 cm. A thinly septated left ovarian anechoic simple appearing cyst measures 6.6 x 4.3 x 4.3 cm. No free fluid in the pelvis. IMPRESSION: 1. Normal uterus. Intrauterine device is in satisfactory position. Small amount of mostly hypoechoic fluid in the endometrial canal, likely blood products .2. Thinly septated simple left ovarian cyst measures 6.6 cm in maximum dimension. In a premenopausal/perimenopaus al patient, a follow-up annual ultrasound is recommended.3. Physiologic changes of the right ovary. Recommendations for f/u of anechoic simple cyst, simple cyst with single thin <3mm septation, or focal calcification in wall of cyst (1): Pre-menopause: >5cm - <7cm US f/u yearly Post-menopause (1 year or more since last menstrual period): >3cm - <7 cm US f/u yearly I have personally reviewed the images of this examination and agree with the resident's findings and interpretation. Interpreted By: Felix Barber MDPreliminary Report By: Nikhil Mello DOElectronically Signed By: Felix Barber MD Dictated Date: 02/01/2017 4:11:03 PM Prelim Date: 02/01/2017 4:18:02 PM Sign Date: 02/01/2017 5:19:20 PM [facility] ([place]) HPVon 01-31-2017 HPV Interp [facility] ([place]) Comment on above: Order Comment: Order placed by AP_HPV_ORDER rule from [id number] Performed By: #### H PV ####[place] [address] HPV Source Cervix [facility] ([place]) Comment on above: Order Comment: Order placed by AP_HPV_ORDER rule from [id number] Performed By: #### H PV ####[place] [address] [facility] Reporton 2016 [facility] Cytology Report . Pathology ReportsAccession: Collected Date/Time: Received Date/Time: Pathologist:[id number] 01/24/2017 16:01 EDT 01/24/2017 18:00 EDT MD SERG ORTA [facility] Cytology ReportSPECIMEN:Specimen Description: Liquid Prep w/ HPVSpecimen: Cervical/EndocervicalScree rosaline or Diagnostic: ScreeningRELEVANT HISTORY:LMP: NOT [id number] ADEQUACY:SATISFACTORY FOR EVALUATIONENDOCERVICAL/TRA NSFORMATIONAL ZONE COMPONENT PRESENTINTERPRETATION/RESU LTS:ATYPICAL SQUAMOUS CELLS OF UNDETERMINED SIGNIFICANCEADJUNCTIVE TESTING:HIGH RISK HPV DNA TESTING ORDERED, REPORT TO FOLLOW UNDER SEPARATE COVERORGANISMS:SHIFT IN ADELA CONSISTENT WITH BACTERIAL VAGINOSIS.Electronically Signed byPathology report verified by [facility] Hospitalcreened by: MAURO DWElectronically signed by SERG ORTA MDSign-Out Date: 01/30/2017 15:53Performing Lab: [address]DisclaimerThe Pap test is a screening test for cervical cancer. As evidenced by published data, it is subject to both inherent false negative and false positive results. Your patient's results should be interpreted in context with pertinent clinical history including gynecological examination. [facility] ([place]) Comment on above: Performed By: #### G YCR ####[place] [address] SURGICAL PATHOLOGY, CONVERTE Don 06-08-2008 [facility] Vital Signs Date Time Vital Sign Value Performing Clinician Nic conway 11-26-2023 15:37-0400 Body mass index (BMI) [Ratio] 35.32 kg/m2 Shira Goel APRN.[employer] Work Phone: [facility] 11-26-2023 15:37-0400 Body temperature 99.39 [degF] Shira Goel APRN.[employer] Work Phone: [facility] 11-26-2023 15:37-0400 Body weight 98.5 kg Shira Moomaw RATTAN WORKER.[employer]BL[employer] Work Phone: [facility] 11-26-2023 15:37-0400 Diastolic blood pressure 82 mm[Hg] Shira Moomaw RATTAN WORKER.[employer]BLER Work Phone: [facility] 11-26-2023 15:37-0400 Heart rate 118 /min Shira Moomaw RATTAN WORKER.[employer]SEMBLER Work Phone: [facility] 11-26-2023 15:37-0400 Respiratory rate 16 /min Shira Moomaw RATTAN WORKER.[employer]BLER Work Phone: [facility] 11-26-2023 15:37-0400 SaO2% (BldA) [Mass fraction] 98 % Shira Moomaw RATTAN WORKER.[employer]BL[employer] Work Phone: [facility] 11-26-2023 15:37-0400 Systolic blood pressure 122 mm[Hg] Shira Moomaw RATTAN WORKER.[employer]BLER Work Phone: [facility] 04-12-2022 09:50-0500 Body height 171.5 cm Manjinder Maya MD Work Phone: [facility] 04-12-2022 09:50-0500 Body mass index (BMI) [Ratio] 27.78 kg/m2 Manjinder Maya MD Work Phone: [facility] 04-12-2022 09:50-0500 Body weight 81.65 kg Manjinder Maya MD Work Phone: [facility] 04-12-2022 09:50-0500 Diastolic blood pressure 96 mm[Hg] Manjinder Maya MD Work Phone: [facility] 04-12-2022 09:50-0500 Heart rate 105 /min Manjinder Maya MD Work Phone: [facility] 04-12-2022 09:50-0500 Systolic blood pressure 163 mm[Hg] Manjinder Maya MD Work Phone: [employer] Encounters Encounter Date Encounter Type Care Provider Facility Start: 04-15-2024 End: 04-18-2024 ambulatory Kareem Ozuna MD Work Phone: Internal [place] [id number] Start: 11-28-2023 End: 11-28-2023 Telephone encounter Manjinder Lay APRN.[employer]BLER Work Phone: [facility] Comment on above: Results Start: 11-26-2023 End: 11-26-2023 ambulatory KAREEM OZUNA Facility:[facility] Start: 11-26-2023 End: 11-26-2023 Patient encounter procedure Shira Goel RATTAN WORKER.[employer] Work Phone: [facility] Comment on above: Frequent urination ( Primary Dx); Acute swimmer's ear of left side Start: 07-20-2023 Admission to [facility] Kareem Ozuna MD Work Phone: Ambulatory Surgery Start: 07-20-2023 ambulatory Kareem goodson MD Work Phone: Ambulatory Surgery Start: 05-02-2023 ambulatory Kareem goodson MD Work Phone: Internal Medicine [facility] Start: 05-31-2022 ambulatory Kareem goodson MD Work Phone: Internal Medicine [facility] Start: 04-12-2022 End: 04-12-2022 Office outpatient new 30 minutes Manjinder Maya MD Work Phone: [facility] [place] Comment on above: Closed displaced avu lsion fracture of left talus, initial encounter (Primary Dx); Closed nondisplaced fracture of anterior process of left calcaneus, initial encounter Start: 02-17-2022 End: 02-17-2022 ambulatory Ray Nnamdi [facility] Work Phone: Start: 02-17-2022 End: 02-17-2022 Patient encounter procedure [facility] Monsivais [facility] Start: 02-08-2022 End: 02-08-2022 Emergency department patient visit YOLI ARAMBULA [facility] Start: 02-22-2018 End: 02-22-2018 Patient encounter procedure BENTLEY [facility] Start: 10-18-2017 Emergency department patient visit Adrian Rodrigues [facility] Start: 05-10-2017 End: 05-15-2017 Ambulatory ISAMAR JACINTO Facility:[facility] Start: 05-10-2017 End: 05-11-2017 Ambulatory ISAMAR JACINTO Facility:[facility] Start: 02-07-2017 End: 02-08-2017 Ambulatory ISAMAR JACINTO Facility:[facility] Start: 02-05-2017 Ambulatory ISAMAR JACINTO Facility:B Start: 02-01-2017 End: 02-06-2017 Ambulatory ISAAMR JACINTO Facility:[facility] Start: 02-01-2017 End: 02-02-2017 Ambulatory ISAMAR JACITNO Facility:[facility] Start: 01-24-2017 End: 01-29-2017 Ambulatory ISAMAR JACINTO Facility:[facility] Start: 06-09-2008 Documentation procedure Aaron Black Work Phone: [facility] Start: 06-09-2008 Historic EMR Driss Black Work Phone: [facility] Procedures Date Procedure Procedure Detail Performing Clinician Start: 11-26-2023 Urnls dip stick/tabl et rgnt auto w/o microscopy Saranya Gregorio APRN.[employer] Work Phone: Start: 02-17-2022 MRI of lower extremity Start: 06-08-2008 SURGICAL PATHOLOGY, CONVERTED Driss Black Work Phone: Start: 05-12-2008 Lipid 1996 panel - S neyda or Plasma Driss Black Work Phone: Plan of Treatment Date Care Activity Detail Author Start: 12-09-2023 Covid-19 Vaccine () Covid-19 Vaccine () [facility] Start: 12-09-2023 Influenza vaccination [facility] Start: 06-01-2023 DIABETES SCREEN DIABETES SCREEN [facility] Start: 06-01-2023 Diabetes Screening Diabetes Screenin g [facility] Start: 04-09-2023 Behavioral Health Screening Behavioral Health Screening [facility] Start: 04-09-2023 Depression Assessment Depression Ass essment [facility] Start: 12-08-2022 Covid-19 Vaccine ( season) Covid-19 Vaccine () [facility] Start: 12-08-2022 Covid-19 Vaccine () Covid-19 Vaccine () [facility] Start: 12-08-2022 Influenza vaccination Influenza Vacc ine (#1) [facility] Start: 06-15-2022 PNEUMOCOCCAL (1 - PCV) PNEUMOCOCCAL (1 - PCV) [facility] Comment on above: Postponed from 08/05 (Declined at this time) Start: 06-15-2022 SHINGRIX VACCINE (1 of 2) SHINGRIX VACCINE (1 of 2) [facility] Comment on above: Postponed from 08/05 (Declined at this time) Start: 06-15-2022 Urine microalbumin profile DTAP,TDAP,TD (2 - Tdap) [facility] Comment on above: Postponed from 01/04 (Declined at this time) Start: 05-10-2022 HPV TESTING HPV TESTING [facility] Start: 05-10-2022 PAP TESTING PAP TESTING [facility] Start: 05-10-2022 Screening for malign ant neoplasm of cervix [facility] Start: 04-09-2022 DEPRESSION ASSESSMENT DEPRESSION ASS ESSMENT [facility] Start: 12-08-2021 Influenza vaccination [facility] Start: 05-09-2021 COVID-19 VACCINE (4 - Booster for Pfizer series) COVID-19 VACCINE (4 - Booster for Pfizer series) [facility] Start: 05-09-2021 COVID-19 Vaccine (4 - Booster) COVID-19 Vaccine (4 - Booster) [facility] Start: 05-09-2021 Covid-19 Vaccine (4 - Pfizer series) Covid-19 Vaccine (4 - Pfizer series) [facility] Start: 08-05-2017 Shingrix Vaccine (1 of 2) Shingrix Vaccine (1 of 2) [facility] Start: 08-05-2017 Zoster Vaccines (1 of 2) Zoste r Vaccines (1 of 2) [facility] Start: 05-12-2013 Lipid 1996 panel - S neyda or Plasma Lipid Screening [facility] Start: 05-12-2013 Lipid panel Lipid Screening [facility] Start: 05-12-2013 LIPID SCREEN LIPID SCREEN [facility] Start: 08-05-2012 COLOGUARD (FIT-DNA) COLOGUARD (FIT-D NA) [facility] Start: 08-05-2012 Colonoscopy COLONOSCOPY [facility] Start: 08-05-2012 COLORECTAL CANCER SCREENING COLORECTAL CANCER SCREENING [facility] Start: 08-05-[address] COLONOGRAPHY [facility] Start: 08-05-2012 FECAL OCCULT BLOOD FECAL OCCULT BLOO D [facility] Start: 08-05-2012 Screening for malign ant neoplasm of colon [facility] Start: 08-05-2012 SIGMOIDOSCOPY SIGMOIDOSCOPY [facility] Start: 2007 Mammography [facility] Start: 2007 Screening for malign ant neoplasm of breast [facility] Start: 01-04-2002 DTaP/Tdap/Td Vaccine s (2 - Tdap) DTaP/Tdap/Td Vaccines (2 - Tdap) [facility] Start: 01-04-2002 Urine microalbumin profile DTaP,Tdap,Td Vaccine (2 - Tdap) [facility] Start: 08-05-1997 Screening for malign ant neoplasm of cervix [facility] Start: 08-05-1988 Screening for malign ant neoplasm of cervix Pap Smear [facility] Start: 08-05-1986 Hepatitis B Vaccine (1 of 3 - 19+ 3-dose series) Hepatitis B Vaccine (1 of 3 - 19+ 3-dose series) [facility] Start: 08-05-1986 Pneumococcal Vaccine : 50+ (1 of 2 - PCV) Pneumococcal Vaccine: 50+ (1 of 2 - PCV) [facility] Start: 08-05-1985 Anxiety Screening Anxiety Screening [facility] Start: 08-05-1985 Depression Screening Depression Scre ening [facility] Start: 08-05-1985 Diabetes mellitus screening Diabetes Screening [facility] Start: 08-05-1985 HEPATITIS C SCREENING HEPATITIS C [facility] Start: 08-05-1985 Hepatitis C screening Hepatitis C [facility] Start: 08-05-1985 HIV SCREENING HIV SCREENING [facility] Start: 08-05-1985 HIV screening HIV Screening [facility] Start: 08-05-1973 Pneumococcal vaccination [facility] Start: 08-05-1973 Pneumococcal Vaccine : Pediatrics (0 to 5 Years) and At-Risk Patients (6 to 64 Years) (1 - PCV) Pneumococcal Vaccine: Pediatrics (0 to 5 Years) and At-Risk Patients (6 to 64 Years) (1 - PCV) [facility] Start: 08-05-1968 MMR Vaccines (1 of 1 - Standard series) MMR Vaccines (1 of 1 - Standard series) [facility] Start: 1967 HEPATITIS B (1 of 3 - 3-dose series) HEPATITIS B (1 of 3 - 3-dose series) [facility] Start: 1967 Hepatitis B Vaccine (1 of 3 - 3-dose series) Hepatitis B Vaccine (1 of 3 - 3-dose series) [facility] Start: 1967 Hepatitis B Vaccines (1 of 3 - 3-dose series) Hepatitis B Vaccines (1 of 3 - 3-dose series) [facility] Start: 1967 HIV screening HIV Screening [facility] Start: 1967 Lipid panel Lipid Panel [facility] Start: 1967 Screening for malign ant neoplasm of colon [facility] Bacteria identified in Urine by Culture URINE CULTURE Microbiology Routine Frequent urination Ordered: 11/26/2023 [facility] Work Phone: Comment on above: Ordered: 11/26/2023 End: 05-15-2025 DBT Breast - bilateral screening SUKH[facility]EP SCREENING [facility] Radiology Routine Encounter for screening mammogram for breast cancer 1 Occurrences starting 04/15/2024 until 05/15/2025 [facility] Work Phone: Comment on above: 1 Occurrences starti ng 04/15/2024 until 05/15/2025 End: 06-30-2023 SUKHDEEP SCREENING SUKHDEEP SCREENING Radiology Routine Encounter for screening mammogram for breast cancer 1 Occurrences starting 05/31/2022 until 06/30/2023 [facility] Work Phone: Comment on above: 1 Occurrences starti ng 05/31/2022 until 06/30/2023 End: 05-31-2024 SUKHDEEP SCREENING SUKHDEEP SCREENING Radiology Routine Encounter for screening mammogram for breast cancer 1 Occurrences starting 05/02/2023 until 05/31/2024 [facility] Work Phone: Comment on above: 1 Occurrences starti ng 05/02/2023 until 05/31/2024 Immunizations Immunization Date Immunization Notes Care Provider Pat sunshine 03-14-2021 COVID-19 original vaccine, age 12+ yr, monovalent (PFIZER-BIONTECH - OLIVIA TOP) Kareem Ozuna MD Work Phone: [facility] Work Phone: 04-28-2020 COVID-19 original vaccine, age 12+ yr, monovalent (PFIZER-BIONTECH - PURPLE TOP) Kareem Ozuna MD Work Phone: [facility] 04-07-2020 COVID-19 original vaccine, age 12+ yr, monovalent (PFIZER-BIONTECH - PURPLE TOP) Kareem Ozuna MD Work Phone: [facility] 03-05-2017 influenza virus vaccine, unspecified formulation Driss Black Work Phone: [facility] 01-05-1992 diphtheria and tetan us toxoids, adsorbed for pediatric use Kareem Ozuna MD Work Phone: [facility] Work Phone: Payers Date Payer Category Payer Private Health Insurance [id number] 2021 Private Health Insurance [id number] 2017 Unknown [id number] 2008 Self-pay 2003 Unknown 1967 Unknown [id number] Unknown [id number] Social History Date Type Detail Facility Tobacco smoking stat [facility] Unknown if ever smoked [facility] Work Phone: Start: 1965 Sex Assigned At Female [facility] Work Phone: Start: 06-15-2021 End: 11-26-2023 Tobacco smoking status ILIS Smokes tobacco daily [facility] Work Phone: History of tobacco use [facility] Work Phone: Start: 03-17-2020 End: 06-15-2021 Cigarettes smoked current (pack per day) - Reported 0.5 [facility] Work Phone: Start: 06-15-2021 End: 11-26-2023 Tobacco use and exposure Smokeless tobacco non-user [facility] Work Phone: Start: 06-17-2021 End: 11-26-2023 Alcohol intake Current drinker of alcohol (finding) [facility] Start: 06-15-2021 End: 11-26-2023 Tobacco Comment 06/15/21- started hypnotherapy [facility] Start: 08-30-2006 Alcohol Comment socially [facility] Start: 1965 Sex Assigned At Not on file S [facility] Start: 03-17-2020 End: 06-17-2021 Tobacco use panel [facility] Work Phone: Adult Depression Screening Assessment 0 [facility] Work Phone: Start: 03-23-2021 End: 04-12-2022 Exposure to SARS-CoV-2 (event) Not sure [facility] Start: 04-12-2022 Alcohol intake Current non-dr live out nanny of alcohol (finding) [facility] Clinical Notes 02-07-2018 to 04-15-2024 Telephone Encounter - Stormy Rainey LPN - 11/28/2023 9:35 AM EDTTelephone Encounter - Stormy Rainey LPN - 11/28/2023 9:35 AM Shira Camp APRN.CNP - 11/26/2023 3:47 PM EDT Note Date & Type Note Facility 04-15-2024 Note Patient Outreach (IN TMMN) SHAHEEN JOHNSTON ([id number]) 1965 F Date Time Provider Department 04/15/24 KAREEM OZUNA During your visit today, we recorded the following information about you: Allergies As of Date: 04/15/2024 Noted Allergy Reaction GABAPENTIN 06/01/2015 1 - Mental Status Change Date Reviewed: 11/26/2023 Reviewed by: Shira Goel APRN.[employer]ER - Fully Assessed Visit Diagnosis:Encounter for screening mammogram for breast cancer [Z12.31] Order(s):[facility] SCREENING [facility] [[id number]] Order #: [id number] FUTURE Prescriptions as of 04/18/2024 - levonorgestrel (MIRENA INTRAUTERINE) by INTRAUTERINE route. Problem List As Of Date 04/15/2024 Noted Resolved Urinary tract infection, site not specified [N3*10/29/2006 04/15/2015 Contact dermatitis and other eczema, due to uns*08/05/2008 04/15/2015 Psoriasis [L40.9] 09/02/2010 06/17/2021 Lumbar disc disease with radiculopathy [M51.16] 01/01/2012 Tobacco abuse [Z72.0] 01/01/2012 IUD (intrauterine device) in place [Z97.5] 07/29/2012 Facet arthritis of lumbar region [M47.816] 10/28/2012 LESLYE (stress urinary incontinence, female) [N39.*04/15/2015 06/17/2021 Rotator cuff syndrome of left shoulder [M75.102]03/21/2017 10/01/2017 Bandemia [D72.825] 10/01/2017 Trigger finger, right ring finger [M65.341] 02/07/2018 04/30/2018 Obesity, Class II, BMI 35-39.9 [E66.812] 12/09/2018 Encounter Status:Closed by DAVID DUARTE on 04/18/24 [facility] 11-28-2023 Telephone encounter Note Patient notified.Stormy Rainey LPN [facility] 11-28-2023 Miscellaneous Notes Patient notified.Stormy Rainey LPN Please inform patient that no bacterial infection was noted on urine culture. Continue antibiotics symptoms are improving. Follow-up with PCP for repeat urine dip. Manjinder Lay APRN.[employer]BLER documented in this encounter [facility] 11-28-2023 Telephone encounter Note Please inform patient that no bacterial infection was noted on urine culture. Continue antibiotics symptoms are improving. Follow-up with PCP for repeat urine dip. Manjinder Lay APRN.[employer]SEMBLER [facility] Work Phone: 11-26-2023 Note HNO ID: [id number] Author: SHIRA GOEL APRN.TIM Service: ? Author Type: Nurse Practitioner Type: Progress Notes Filed: 11/26/2023 16:04 Note Text: This note was created using [email or web address]. Subjective Shaheen Johnston is a 58 year old female. HPI Pt complains of pain and swelling in her left ear after swimming last week. Symptoms seemed worse over the last several days. Last night pt noticed urinary frequency which has continued into today. Review of Systems Constitutional: Negative for fever. HENT: Negative for ear pain. Genitourinary: Positive for dysuria and frequency. Objective BP 122/82 Pulse 118 Temp 37.4 ?C (99.4 ?F) Resp 16 Wt 98.5 kg (217 lb 2.5 oz) LMP 07/11/2009 SpO2 98% BMI 35.32 kg/m? Physical Exam Vitals and nursing note reviewed. Constitutional: General: She is not in acute distress. Appearance: Normal appearance. She is not ill-appearing. HENT: Head: Normocephalic. Ears: Comments: Left external ear canal is swollen close Mouth/Throat: Mouth: Mucous membranes are moist. Eyes: Conjunctiva/sclera: Conjunctivae normal. Cardiovascular: Rate and Rhythm: Normal rate and regular rhythm. Pulmonary: Effort: Pulmonary effort is normal. Breath sounds: Normal breath sounds. Musculoskeletal: General: Normal range of motion. Cervical back: Normal range of motion. Skin: General: Skin is warm and dry. Neurological: General: No focal deficit present. Mental Status: She is alert. Psychiatric: Mood and Affect: Mood normal. Behavior: Behavior normal. Assessment and Plan ASSESSMENT/PLAN: 1. Frequent urination - ICD9: 788.41, ICD10: R35.0 (primary diagnosis) acute - UA positive for florence esterase - Send urine for culture - Begin treatment with Macrobid 100 mg BID for 5 days - Patient education for prevention given - UA DIP, URINE (POC) - URINE CULTURE - NITROFURANTOIN MONOHYDRATE AND MACROCRYSTAL 100 MG ORAL CAP 2. Acute swimmer's ear of left side - ICD9: 380.12, ICD10: H60.332 Ear wick inserted into left ear by myself. Several drops of normal saline were applied to anchor the ear wick. Patient given antibiotic drops as noted below. - [id number] 3.5 MG-10,000 UNIT/ML-1 % EAR DROPS,SUSP Shira Goel APRN.[employer]SEMBLER [facility] 11-26-2023 History of Presen t illness Narrative This note was created using [email or web address]. Subjective Shaheen Johnston is a 58 year old female. HPI Pt complains of pain and swelling in her left ear after swimming last week. Symptoms seemed worse over the last several days. Last night pt noticed urinary frequency which has continued into today. Review of Systems Constitutional: Negative for fever. HENT: Negative for ear pain. Genitourinary: Positive for dysuria and frequency. Objective BP 122/82 Pulse 118 Temp 37.4 C (99.4 F) Resp 16 Wt 98.5 kg (217 lb 2.5 oz) LMP 07/11/2009 SpO2 98% BMI 35.32 kg/m Physical Exam Vitals and nursing note reviewed. Constitutional: General: She is not in acute distress. Appearance: Normal appearance. She is not ill-appearing. HENT: Head: Normocephalic. Ears: Comments: Left external ear canal is swollen close Mouth/Throat: Mouth: Mucous membranes are moist. Eyes: Conjunctiva/sclera: Conjunctivae normal. Cardiovascular: Rate and Rhythm: Normal rate and regular rhythm. Pulmonary: Effort: Pulmonary effort is normal. Breath sounds: Normal breath sounds. Musculoskeletal: General: Normal range of motion. Cervical back: Normal range of motion. Skin: General: Skin is warm and dry. Neurological: General: No focal deficit present. Mental Status: She is alert. Psychiatric: Mood and Affect: Mood normal. Behavior: Behavior normal. Assessment and Plan ASSESSMENT/PLAN: 1. Frequent urination - ICD9: 788.41, ICD10: R35.0 (primary diagnosis) acute - UA positive for florence esterase - Send urine for culture - Begin treatment with Macrobid 100 mg BID for 5 days - Patient education for prevention given - UA DIP, URINE (POC) - URINE CULTURE - NITROFURANTOIN MONOHYDRATE & MACROCRYSTAL 100 MG ORAL CAP 2. Acute swimmer's ear of left side - ICD9: 380.12, ICD10: H60.332 Ear wick inserted into left ear by myself. Several drops of normal saline were applied to anchor the ear wick. Patient given antibiotic drops as noted below. - [id number] 3.5 MG-10,000 UNIT/ML-1 % EAR DROPS,SUSP Shira Goel APRN.TIM documented in this encounter [facility] 07-31-2023 Note HNO ID: [id number] Author: ?, ?, ? Service: ? Author Type: ? Type: Progress Notes Filed: 08/20/2023 03:02 Note Text: 07-30 Mailed colonoscopy Letter / 2nd attempt to call unable to leave voice message Rama Rasheed [facility] 07-31-2023 History of Presen t illness Narrative 07-30 Mailed colonoscopy Letter / 2nd attempt to call unable to leave voice message Rama Rasheed 07-19... First attempt to contact patient to schedule Wellness visit has not been seen since 06-15-2021. Unable to leave a voice message, mailbox full Sent MyChart message too. Rama Rasheed COLONOSCOPY PATIENT OUTREACH Action/FYI Colonoscopy Recall Patient identified by Name and : Yes. OUTREACH OUTCOME ACTION: Open Access: Telephone call: Pt is overdue for screening colonoscopy. May proceed as open access. Please call pt to schedule. Clara Corcoran RN documented in this encounter [facility] 07-20-2023 Note HNO ID: [id number] Author: ?, ?, ? Service: ? Author Type: ? Type: Progress Notes Filed: 08/20/2023 03:02 Note Text: 07-19... First attempt to contact patient to schedule Wellness visit has not been seen since 06-15-2021. Unable to leave a voice message, mailbox full Sent MyChart message too. Rama Rasheed [facility] 07-20-2023 Note HNO ID: [id number] Author: CLARA CORCORAN, REMY Service: ? Author Type: Registered Nurse Type: Progress Notes Filed: 08/20/2023 03:02 Note Text: COLONOSCOPY PATIENT OUTREACH Action/FYI Colonoscopy Recall Patient identified by Name and : Yes. --- OUTREACH OUTCOME ACTION: Open Access: Telephone call: Pt is overdue for screening colonoscopy. May proceed as open access. Please call pt to schedule. Clara Corcoran RN [facility] 07-20-2023 Note Patient Outreach ( WSTR) VICKIESHAHEEN Cedric ([id number]) 1965 F Date Time Provider Department 07/20/23 KAREEM OZUNAJULIANNA During your visit today, we recorded the following information about you: Clara Corcoran RN 08/20/2023 3:02 AM Signed COLONOSCOPY PATIENT OUTREACH Action/ Colonoscopy Recall Patient identified by Name and : Yes. ---- OUTREACH OUTCOME ACTION: Open Access: Telephone call: Pt is overdue for screening colonoscopy. May proceed as open access. Please call pt to schedule. REMY Schroeder Ida 08/20/2023 3:02 AM Signed 07-19... First attempt to contact patient to schedule Wellness visit has not been seen since 06-15-2021. Unable to leave a voice message, mailbox full Sent [employer] message too. Rama Devine 08/20/2023 3:02 AM Signed 07-30 Mailed colonoscopy Letter / 2nd attempt to call unable to leave voice message Rama Rasheed Allergies As of Date: 07/20/2023 Noted Allergy Reaction GABAPENTIN 06/01/2015 1 - Mental Status Change Date Reviewed: 06/17/2021 Reviewed by: Vivi Mckeon, BLAKE.[employer]ARK PLUG ASSEMBLER - Fully Assessed Prescriptions as of 08/20/2023 - levonorgestrel (MIRENA INTRAUTERINE) by INTRAUTERINE route. Problem List As Of Date 07/20/2023 Noted Resolved Urinary tract infection, site not specified [N3*10/29/2006 04/15/2015 Contact dermatitis and other eczema, due to uns*08/05/2008 04/15/2015 Psoriasis [L40.9] 09/02/2010 06/17/2021 Lumbar disc disease with radiculopathy [M51.16] 01/01/2012 Tobacco abuse [Z72.0] 01/01/2012 IUD (intrauterine device) in place [Z97.5] 07/29/2012 Facet arthritis of lumbar region [M47.816] 10/28/2012 LESLYE (stress urinary incontinence, female) [N39.*04/15/2015 06/17/2021 Rotator cuff syndrome of left shoulder [M75.102]03/21/2017 10/01/2017 Bandemia [D72.825] 10/01/2017 Trigger finger, right ring finger [M65.341] 02/07/2018 04/30/2018 Obesity, Class II, BMI 35-39.9 [E66.9] 12/09/2018 Encounter Status:Closed by DAVID DUARTE on 08/20/23 [facility] 05-02-2023 Note Patient Outreach (IN [facility]) SHAHEEN JOHNSTON ([id number]) 1965 F Date Time Provider Department 05/02/23 KAREEM OZUNA During your visit today, we recorded the following information about you: Allergies As of Date: 05/02/2023 Noted Allergy Reaction GABAPENTIN 06/01/2015 1 - Mental Status Change Date Reviewed: 06/17/2021 Reviewed by: Vivi Mckeon APRN.[employer] ASSEMBLER - Fully Assessed Visit Diagnosis:Encounter for screening mammogram for breast cancer [Z12.31] Order(s):[facility] SCREENING [1084268] Order #: [id number] FUTURE Prescriptions as of 05/07/2023 - levonorgestrel (MIRENA INTRAUTERINE) by INTRAUTERINE route. Problem List As Of Date 05/02/2023 Noted Resolved Urinary tract infection, site not specified [N3*10/29/2006 04/15/2015 Contact dermatitis and other eczema, due to uns*08/05/2008 04/15/2015 Psoriasis [L40.9] 09/02/2010 06/17/2021 Lumbar disc disease with radiculopathy [M51.16] 01/01/2012 Tobacco abuse [Z72.0] 01/01/2012 IUD (intrauterine device) in place [Z97.5] 07/29/2012 Facet arthritis of lumbar region [M47.816] 10/28/2012 LESLYE (stress urinary incontinence, female) [N39.*04/15/2015 06/17/2021 Rotator cuff syndrome of left shoulder [M75.102]03/21/2017 10/01/2017 Bandemia [D72.825] 10/01/2017 Trigger finger, right ring finger [M65.341] 02/07/2018 04/30/2018 Obesity, Class II, BMI 35-39.9 [E66.9] 12/09/2018 Encounter Status:Closed by EPIC, PRODUSER on 05/07/23 [facility] 04-12-2022 History of Presen t illness Narrative [facility] [address] [place] [phone] Dept: [phone] Shaheen Johnston 1965 [id number] 04/12/2022 HISTORY OF PRESENT ILLNESS: Shaheen is a 56 y.o. female here today for evaluation of her left foot. She fell in her garage landing on her left foot on 02/07/22. She was sent to the office by [facility]. Shaheen states the problem has been present for 2 months Shaheen states the problem started as the result of an injury Shaheen has tried or has been treated with the following: NWB in boot . Review of Systems Surgical Risk Factors: Allergies to Metals or Latex: NO Have you been treated for a blood clot: NO Have you had a history of bleeding disorder: NO Have you had a history of Anesthetic problems: NO Do you have tendency to bruise easily: NO Do you experience prolonged or excessive bleeding from cuts or after surgery: NO General/Constitutional: General: no Cancer: NO Acute/Chronic Infections: NO HEENT/Neck: Problems with theThroat: NO Problems with the Eyes: NO Problems with the Ears: NO Problems with the Nose and Sinuses: NO Endocrine: Problems with Diabetes: NO Problems with Thyroid Disorder: NO Thorax: Problems with the Heart: NO Problems with the Lung: no Cardiovascular: Problems with Circulation: NO Problems with High Blood pressure: NO Gastrointestinal: Problems with Ulcers: NO Problems with the Liver: no Problems with Bowel Habits: NO Genitourinary: Problems with the Genitals: NO Urinary problems: NO Kidney disease or stones: NO Skin: Any general problems: NO Neurologic: Dizziness, blurred vision, headaches, problems with balance : NO Seizures or Stroke: NO Psychiatric: Emotional or Psychological disorders: NO Depression or Anxiety: no PAST MEDICAL HISTORY: Past Medical History: Diagnosis Date Chronic back pain No Known Allergies PHYSICAL EXAM: BP (!) 163/96 Pulse 105 Ht 5' 7.5 (1.715 m) Wt 180 lb (81.6 kg) BMI 27.78 kg/m This is an age appropriate appearing female who is alert and oriented x 3. The patient appears well nourished. Psychiatric: The patient is able to verbalize normally and seems to have a good understanding of her situation. The left lower extremity is examined. Skin: Skin is warm and dry and ruborous in a dependent position which resolves with elevation Lymphatic: No lymphadenopathy Moderate swelling of the hindfoot, midfoot, and forefoot Vascular: Capillary refill in the foot/toes is less than 3 seconds. Neurologic: Sensation is intact to light touch throughout the foot and the ankle . Musculoskeletal: The calf is nontender to palpation. 5/5 strength in the lower extremity ROM: Full ROM of the foot and ankle Alignment: No obvious deformity Areas of Tenderness: Minimal tenderness palpation overlying the dorsal aspect of the talar head region at the time talonavicular joint level. Minimal tenderness over the anterior process of the calcaneus. No other areas of tenderness are noted with palpation of the hindfoot, midfoot and forefoot. RADIOGRAPHIC INTERPRETATION: The following outside studies that were ordered by another care provider were reviewed and my interpretation of the these studies follows and these include: CT scan of the left foot were reviewed. There is a small avulsion fracture from the dorsal aspect of the talar head with an anatomically aligned talonavicular joint. A small nondisplaced fracture of the anterior process of the calcaneus is noted with anatomic alignment of the calcaneocuboid joint. No other fractures or dislocations are seen. REVIEW OF RELATED PREVIOUS DOCUMENTATION: No documents related to the current problem(s) were reviewed or no documents were available for review. LABORATORY RESULT INTERPRETATION: No labs were reviewed/No labs available for review DIAGNOSIS: Diagnosis Plan 1. Closed displaced avulsion fracture of left talus, initial encounter 2. Closed nondisplaced fracture of anterior process of left calcaneus, initial encounter MEDICAL DECISION MAKING: I had a discussion with Shaheen to make sure she has a good understanding of the diagnoses/issues that I think are present today and understands the plan moving forward. I explained to Shaheen that her fracture of the left calcaneus and talus is in acceptable alignment and is progressively healing as expected As a result it was decided to have Shaheen transition from the aircast boot to a regular shoe. Shaheen was instructed to be weight bearing as tolerated on the left lower extremity in a regular shoe. If Shaheen has any problems maintaining this weight bearing status she was instructed to call me so that appropriate instructions can be given. I explained that as she increases her activity level there will likely be some level of discomfort in the area of the injury but if there is pain then she needs to stop the activity. I explained that it can take up to 12 months to be able to participate in pre-injury activities. If her pain is increasing she needs to call for an appointment. Shaheen can continue to elevate the left lower extremity for comfort if needed. I want to see Shaheen back as needed. If Shaheen feels things are going poorly or if she is having problems with the above plan she was instructed to call my office to determine if the plan of care needs to be changed or if she needs to be seen sooner than noted above. Follow up if symptoms worsen or fail to improve. Electronically signed by Manjinder Maya MD [facility] Department of Orthopedic surgery 04/12/2022 4:40 PM Voice recognition was used for portions of this note and although it was reviewed prior to signing some incorrect words or phrases could be present. documented in this encounter [facility] 02-07-2018 History of Past i llness Narrative Problem Noted Date Resolved Date Trigger finger, right ring finger 02/07/2018 04/30/2018 Overview: Added automatically from request for surgery [id number] Rotator cuff syndrome of left shoulder 10/01/2017 Overview: 03/21/17: Tendinitis of the supraspinatus, subscapularis, and infraspinatus tendons, left shoulder LESLYE (stress urinary incontinence, female) 201506/17/2021 Psoriasis 09/02/2010 06/17/2021 Contact dermatitis and other eczema, due to unspecified cause 08/05/2008 04/15/2015 Urinary tract infection, site not specified 10/0804/15/2015 documented as of this encounter (statuses as of 06/05/2022) [facility]2018 History of Past illness Narrative* Problem Noted Date Diagnosed Date Resolved Date Trigger finger, right ring finger 02/07/2018 04/30/2018 Overview: Added automatically from request for surgery [id number] Rotator cuff syndrome of left shoulder 03/21/2017 10/01/2017 Overview: 03/21/17: Tendinitis of the supraspinatus, subscapularis, and infraspinatus tendons, left shoulder LESLYE (stress urinary incontinence, female) 04/15/2015 06/17/2021 Psoriasis 09/02/2010 06/17/2021 DERMATITIS NOS 08/05/2008 04/15/2015 URIN TRACT INFECTION NOS 10/29/200610/2015 documented as of this encounter (statuses as of 12/28/2022) [facility] History of Past illness Narrative* Problem Noted Date Diagnosed Date Resolved Date Trigger finger, right ring finger 02/07/2018 04/30/2018 Overview: Added automatically from request for surgery [id number] Rotator cuff syndrome of left shoulder 03/21/2017 10/01/2017 Overview: 03/21/17: Tendinitis of the supraspinatus, subscapularis, and infraspinatus tendons, left shoulder LESLYE (stress urinary incontinence, female) 04/15/2015 06/17/2021 Psoriasis 09/02/2010 06/17/2021 Contact dermatitis and other eczema, due to unspecified cause 08/05/2008 04/15/2015 Urinary tract infection, site not specified 10/29/2006 04/15/2015 documented as of this encounter (statuses as of 05/07/2023) [facility] noteNo assessment information availableWGerman Hospital Work Phone: Evaluation note* Diagnosis Encounter for screening mammogram for breast cancer documented in this encounter [facility] note* Diagnosis Encounter for screening mammogram for breast cancer documented in this encounter [facility] note* Diagnosis Frequent urination- Primary Urinary frequency Acute swimmer's ear of left side documented in this encounter [facility] note* Diagnosis Closed displaced avulsion fracture of left talus, initial encounter- Primary Closed nondisplaced fracture of anterior process of left calcaneus, initial encounter [facility] Diagnosis Encounter for screening mammogram for breast cancer documented in this encounter [facility] for referral (narrative)* Diagnostic Procedure Only (Routine) - Pending Review Specialty Diagnoses / Procedures Referred By Obinna t Referred To Contact [facility] Diagnoses Encounter for screening mammogram for breast cancer Procedures SUKHDEEP SCREENING SCREENING MAMMOGRAPHY BI 2-VIEW BREAST INC CAD Kareem Ozuna MD [address] [place] [address] [facility] [address] [place] [address] Referral ID Status Reason Start Date Expiration Date Visits Requested Visits Authorized [id number] Pending Review Auto-Generat ed Referral 05/31/2022 06/30/2023 1 1 [facility] for referral (narrative)* Diagnostic Procedure Only (Routine) - Pending Review Specialty Diagnoses / Procedures Referred By Obinna flores Referred To Contact [facility] Diagnoses Encounter for screening mammogram for breast cancer Procedures SUKHDEEP SCREENING SCREENING MAMMOGRAPHY BI 2-VIEW BREAST INC Kareem Gracia MD [address] [place] [address] [facility] [address] [place] [address] Referral ID Status Reason Start Date Expiration Date Visits Requested Visits Authorized [id number] Pending Review Auto-Generat ed Referral 05/02/2023 05/31/2024 1 1 [facility] for referral (narrative)* Diagnostic Procedure Only (Routine) - New Request Specialty Diagnoses / Procedures Referred By Obinna flores Referred To Contact [facility] Diagnoses Encounter for screening mammogram for breast cancer Procedures SUKHDEEP SCREENING W PERNELL SCREENING DIGITAL BREAST TOMOSYNTHESIS BI SCREENING MAMMOGRAPHY BI 2-VIEW BREAST INC Kareem Gracia MD [address] [place] [address] [facility] [address] [place] [address] Referral ID Status Reason Start Date Expiration Date Visits Requested Visits Authorized [id number] New Request Auto-Generat ed Referral 04/15/2024 05/15/2025 1 1 [facility] Summary Purpose Family History No Family History Records FoundNo Family History Records FoundNo Family History Records FoundNo Family History Records FoundNo Family History Records FoundNo Family History Records Found Advance Directives No Advanced Directives Records FoundNo Advanced Directives Records FoundNo Advanced Directives Records FoundNo Advanced Directives Records FoundNo Advanced Directives Records FoundNo Advanced Directives Records Found Chief Complaint and Reason for Visit Chief Complaint LT FOOT/ANKLE FRACTU RE Additional Source Comments INFORMATION SOURCE (unrecogn ized section and content) DATE CREATED AUTHOR 10/01/[address] [facility] ([place]) DATE CREATED AUTHOR AUTHOR'S ORGANIZ ATION 10/24/2017 [facility] DATE CREATED AUTHOR AUTHOR'S ORGANIZ ATION 03/18/2018 [facility] DATE CREATED AUTHOR AUTHOR'S ORGANIZ ATION 02/12/2022 [facility] DATE CREATED AUTHOR AUTHOR'S ORGANIZ ATION 02/24/2022 [facility] DATE CREATED AUTHOR AUTHOR'S ORGANIZ ATION 04/23/2024 [facility] Goals (unrecognized section and content) Goals may be documented in a n alternate section Source Comments (unrecognize d section and content) In the event this informatio n is protected by the Federal Confidentiality of Alcohol and Drug Abuse Patient Records regulations: The Federal rules restrict any use of the information to criminally investigate or prosecute any alcohol or drug abuse patient.[facility] the event this information is protected by the Federal Confidentiality of Alcohol and Drug Abuse Patient Records regulations: The Federal rules restrict any use of the information to criminally investigate or prosecute any alcohol or drug abuse patient.[facility] the event this information is protected by the Federal Confidentiality of Alcohol and Drug Abuse Patient Records regulations: The Federal rules restrict any use of the information to criminally investigate or prosecute any alcohol or drug abuse patient.[facility] the event this information is protected by the Federal Confidentiality of Alcohol and Drug Abuse Patient Records regulations: The Federal rules restrict any use of the information to criminally investigate or prosecute any alcohol or drug abuse patient.[facility] the event this information is protected by the Federal Confidentiality of Alcohol and Drug Abuse Patient Records regulations: The Federal rules restrict any use of the information to criminally investigate or prosecute any alcohol or drug abuse patient.[facility] the event this information is protected by the Federal Confidentiality of Alcohol and Drug Abuse Patient Records regulations: The Federal rules restrict any use of the information to criminally investigate or prosecute any alcohol or drug abuse patient.[facility] the event this information is protected by the Federal Confidentiality of Alcohol and Drug Abuse Patient Records regulations: The Federal rules restrict any use of the information to criminally investigate or prosecute any alcohol or drug abuse patient.[facility] Care Teams (unrecognized sec tion and content) Toy Department Manager Relationship Specialty Start Date End Date Kareem Ozuna MD [address] [place] [address] PCP - General Internal Medicine 06/15/21 Toy Department Manager Relationship Specialty Start Date End Date Bj London III, MD [place] [address]ESS PCP - General 01/31/02 04/21/21 Kareem Ozuna MD [address] [place] [address] PCP - General Internal Medicine 06/15/21 Toy Department Manager Relationship Specialty Start Date End Date Kareem Ozuna MD [address] [place] [address] PCP - General Internal Medicine 06/15/21 Toy Department Manager Relationship Specialty Start Date End Date Kareem Ozuna MD [address] [place] [address] PCP - General Internal Medicine 06/15/21 Toy Department Manager Relationship Specialty Start Date End Date Kareem Ozuna MD [address] [place] [address] PCP - General Internal Medicine 06/15/21 Toy Department Manager Relationship Specialty Start Date End Date Kareem Ozuna MD [address] [place] [address] PCP - General Internal Medicine 06/15/21 Toy Department Manager Relationship Specialty Start Date End Date Bj London III, MD PCP - General 10/07/17 Toy Department Manager Relationship Specialty Start Date End Date Kareem Ozuna MD [address], [place] [id number] PCP - General Internal Medicine 06/15/21 Vivi Tubbs, RATTAN WORKER.SPARK PLUG ASSEMBLER [address], [place] [id number] [facility] 03/17/24 Reason for Visit (unrecogniz ed section and content) Reason Comments Facial Swelling left side facial swe lling, ear pain and pressure x 3 days, frequent urination x 1 day Reason Comments Results Reason Comments New Patient Left foot fx, DOI FOR RECORDS PERTAINING TO PATIENTS WHO ARE OR HAVE BEEN ENROLLED IN A CHEMICAL DEPENDENCY/SUBSTANCEABUSE PROGRAM, SOME INFORMATION MAY BE OMITTED. This clinical summary was aggregated from multiple sources. Caution should be exercised in using it in the provision of clinical care. This summary normalizes information from multiple sources, and as a consequence, information in this document may materially change the coding, format and clinical context of patient data. In addition, data may be omitted in some cases. CLINICAL DECISIONS SHOULD BE BASED ON THE PRIMARY CLINICAL RECORDS. [employer] provides no warranty or guarantee of the accuracy or completeness of information in this document.
[2024-12-29 07:32] LABS: Hematocrit 45.4 % (37-47); Hemoglobin 15.7 g/dL (12.0-15.0); Immature Granulocytes Count 0.040 X10^3/uL (0.0-0.0); Mean Corp Hgb Conc 34.6 g/dL (32-36); Mean Corpuscular Volume 88.2 fL (81-99); Mean Platelet Vol. 9.2 fl (6.2-12.0); NRBC Flagged by Analyzer 0 % (0-5); Platelet Count 423 K/mm3 (150-450); RBC Distribution Width CV 12.6 % (11.6-14.6); RBC Distribution Width SD 41.2 fl (35.1-43.9); Red Blood Count 5.15 M/mm3 (4.2-5.4); White Blood Count 8.6 K/mm3 (4.4-11.0)
[2024-12-29 08:04] LABS: AST(SGOT) 24 U/L (<=31); Alanine Aminotransfer ALT/SGPT 24 U/L (<=34); Albumin, Serum 4.2 g/dL (3.5-5.0); Alkaline Phosphatase 94 U/L (35-104); Anion Gap 11 (5-15); BUN 14 mg/dL (4-19); BUN/Creat Ratio 18.4 RATIO (10-20); Calcium,Total 9.3 mg/dL (7.6-11.0); Carbon Dioxide 23.4 mmol/L (21.0-32.0); Chloride 105 mmol/L (98-108); Cholesterol 213 mg/dL (<=200); Globulin 2.8 g/dL (2.2-4.2); Glucose 102 mg/dL (70-99); Low Density Lipoprotein Calc. 134 mg/dL; Potassium 3.6 mmol/L (3.3-5.1); Triglycerides 93 mg/dL; Very Low Density Lipoprotein 19 mg/dL (5-40); cholesterol:hdl ratio screen 3.55
[2024-12-31 23:07] LABS: Egg, Whole <0.10 kU/L (Class 0); Mussels <0.10 kU/L (Class 0)
== END | disposition home or self-care (01) ==
PROVIDERS: PCP Nurse Practitioner Family; Referring Provider Nurse Practitioner Family; Visit Provider Nurse Practitioner Family
DX: Z00.01 Encounter for general adult medical examination with abnormal findings (principal); R14.0 Abdominal distension (gaseous)
CPT/HCPCS: 36415; 80053; 80061; 85025; 86003; 86005